=== PATIENT | male | born 1955 | race Caucasian/White ===

== ENCOUNTER → 2018-10-06 | Outpatient (CLI) | payer BC ==
[~2018-10-06] MED LIST: IOHEXOL 180 MG/ML 10 ML VIAL. ONE; MONT10TA9 PO; methylPREDNISolone ACETATE 40 MG/ML VIAL. ONE; methylPREDNISolone ACETATE 80 MG/ML VIAL. ONE
--- NOTE | 2018-10-07 02:27 | PAIN ---
DATE OF SERVICE: 10/06/2018 INITIAL CONSULTATION FOR PAIN CLINIC CHIEF COMPLAINT: Low back and right lower extremity pain. HISTORY OF PRESENT ILLNESS: This is a 63-year-old male who presents with a history of pain for about 2 months, increasing with activity, with pain in the low back and the right lower extremity, mostly in the lateral anterior thigh on the right side to the level of the knee and the medial calf and medial knee as well as the right side. The patient reports no specific injury or accident that he is aware of, it is just getting worse over time. The patient reports it is a sharp pain that is shooting with some numbness and radiating pain in the right leg, getting worse at night, and worse with sitting for prolonged periods or driving. 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 The patient reports it awakens him from sleep about 3-4 times a night, does not affect his bowel or bladder control, but does affect his ability to walk significantly, although he is not using any assistive devices. The patient had some chiropractic treatment, which was not significantly helpful. He is doing some stretching and strengthening exercises on his own. The patient did have an MRI scan of the lumbar spine dated 09/23/2018, which showed a generalized disk bulge at L3-L4 with superimposed right foraminal disk herniation compressing the exiting right L3 nerve root contributing to severe right neural foraminal stenosis; L4-L5 shows a generalized disk bulge with mild left neural foraminal stenosis, asymmetric to the left, L2-L3 shows a moderate central stenosis and bilateral neural foraminal stenosis due to generalized disk bulges. The patient reports his disability rate from 0-10, 10 being the worst, is a 5 with family home responsibilities, social activity, 7 with recreation and occupation and self-care, 8 with sexual behavior, and 6 with life support activities. The patient reports no significant loss of motor function, but significant fatigability in the right lower extremity with any walking more than about 10-15 minutes or sitting for longer than an hour, especially when he is working and driving. PAST MEDICAL HISTORY: Significant for hearing loss, asthma. PAST SURGICAL HISTORY: Previous surgery includes left shoulder surgery in 1970s. CURRENT MEDICATIONS: Complete and well documented on the patient's chart. 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 FAMILY HISTORY: Significant for no major medical problems or conditions that he is aware of. SOCIAL HISTORY: The patient does not drink alcohol; does not smoke and does not use any illegal, illicit, or recreational drugs. 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 REVIEW OF SYSTEMS: The patient's review of systems is positive for those items mentioned in the history of present illness. All systems reviewed and otherwise negative. It is complete, full, and well documented in the patient's chart. PHYSICAL EXAMINATION: VITAL SIGNS: The patient's blood pressure 125/66, pulse 69, respirations 18, and temperature is 97.9 degrees Fahrenheit. Height is 5 feet 10 inches and weight is 228 pounds. GENERAL: The patient is awake, alert, oriented, appropriate, and very pleasant demeanor. HEENT: Head shows normocephalic and atraumatic. Extraocular movements are intact and symmetrical. Oral cavity: Mucous membranes moist and pink. Dentition is intact. NECK: Shows anterior throat supple without palpable lymphadenopathy noted. Swallow reflex is symmetrical. CHEST: Normal on inspection. Breath sounds are clear to auscultation bilaterally. HEART: Shows S1 and S2 clear. No murmurs auscultated. ABDOMEN: Obese, but soft, nontender, and nondistended. No palpable organomegaly is noted. There is no rebound or guarding demonstrated. BACK: Shows spine grossly in the midline. Normal-appearing thoracic kyphosis and some slight flattening of the lumbar lordotic curvature. Lumbar paraspinous muscles show symmetrical on inspection. On palpation, he has some moderate tenderness diffusely, but without significant atrophy, hypertrophy, without asymmetry, and without trigger points. The patient shows no tenderness over the spinous processes, sacrum or sacroiliac regions. EXTREMITIES: The patient's lower extremities show deep tendon reflexes at 1+ in the patellar and tendo-calcaneus tendons. Motor exam is strong with dorsiflexion and extension, rated at a 4/5 on the right, and 5/5 on the left, quadriceps and hamstring flexion likewise very significantly deficit about 3-5 on a scale of 5 on the right, and 5 on the left. Peripheral pulses are 1+ posterior tibia. No peripheral edema is noted. Lower extremities are warm and dry to touch, equal in color and appearance. Straight leg raise is noted to be positive on the right about 40 degrees, left is negative. Gaenslen's and Elpidio's maneuvers are negative bilaterally as well. The patient is able to stand, stand on his toes without difficulty or loss of balance, walking with a slight shuffling gait, does appear to favor the right lower extremity to a mild extent, again not using any assistive devices with him today. SKIN: The patient's skin shows warm and dry, good turgor. No edema. No sores, rashes or bruising throughout. IMPRESSION: 1. This is a 63-year-old male with a several-month history of increasing pain in the low back and right lower extremity in a radicular fashion. 2. The MRI scan of lumbar spine as noted. 3. History of asthma. PLAN: Options were discussed with the patient, including conservative medical management, physical therapy, interventional techniques and they would like to pursue interventional techniques. We discussed a lumbar epidural steroid injection using description as well as anatomical models to describe the procedure. Risks were then discussed including, but not limited to bleeding, infection, possibility of epidural hematoma, subsequent neurological compromise, dural puncture, headaches, spinal cord and/or nerve damage, side effects of steroid medication, and poor results regarding pain control. The patient understands and wishes to proceed. The patient will return to clinic in approximately 2 weeks for followup, was counseled as to return appointment, activity level, and side effects to be aware of. DIAGNOSES: Lumbar radiculopathy with lumbar degenerative disk disease and lumbar herniated disk. PROCEDURE: Lumbar epidural steroid injection, translaminar approach at L3-L4 level using C-arm fluoroscopic guidance under sterile prep and drape using local anesthetic. MEDICATION INJECTED: A total of 120 mg of Depo-Medrol plus 10 mL of preservative-free normal saline and 2 mL of Isovue for contrast. CONDITION AT DISCHARGE: Stable. The patient tolerated the procedure well and had no complications. PIETER NIEVES MD DR: MARIELENA/og JOB#: [id number] / [id number]
== END | disposition home or self-care (01) ==
LOC: PNCL 08:24
PROVIDERS: ATTEND Anesthesiology
DX: M51.16 Intervertebral disc disorders with radiculopathy, lumbar region (principal); J45.909 Unspecified asthma, uncomplicated; H91.90 Unspecified hearing loss, unspecified ear; Z98.890 Other specified postprocedural states; Z79.899 Other long term (current) drug therapy; Z88.8 Allergy status to other drugs, medicaments and biological substances
CPT/HCPCS: 62323; J1030; J1040; Q9965

== ENCOUNTER → 2018-10-20 | Outpatient (CLI) | payer BC ==
--- NOTE | 2018-10-21 04:59 | PAIN ---
DATE OF SERVICE: 10/20/2018 PROGRESS NOTE FOR PAIN CLINIC DIAGNOSES: Lumbar radiculopathy with lumbar degenerative disk disease and lumbar herniated disk. HISTORY OF PRESENT ILLNESS: The patient is a 63-year-old male who returns for followup status post lumbar epidural steroid injection x 1. The patient reports his back is doing much better, about 50%. His leg is still significantly painful and anterior thigh and anterior lower leg medially. The patient reports it is an 8 on a scale of 10 at its worst over the past week, 6 on average, 3 at its least and is a 6 today. The patient reports it is aching in the low back with unbearable in the knee at night on the right side. The patient reports it is traveling into the anterior thigh, medial thigh, medial knee and medial lower leg with walking, standing, change in positions, worse with working bending, stooping, changing, rotation of the lumbar spine, with bending and lifting activities. The patient reports he has been increasing his distance walking, increasing his activity overall because his back is doing better, but the pain in the leg is still significant. The patient reports it awakens him from sleep at night about once or twice each night. No new motor or sensory deficits, no new bowel or bladder incontinence. PHYSICAL EXAMINATION: VITAL SIGNS: The patient's blood pressure is 115/56, pulse 70, respirations 18, temperature is 97.9 degrees Fahrenheit. Height is 5 feet 10 inches, weight is 223 pounds. GENERAL: The patient is awake, alert, oriented, appropriate, very pleasant demeanor. HEENT: Head is normocephalic, atraumatic. Extraocular movements intact and symmetrical. Oral cavity: Mucous membranes are moist and pink. Dentition is intact. NECK: Shows anterior throat supple without palpable lymphadenopathy noted. Swallow reflex symmetrical. CHEST: Shows normal with inspection. Breath sounds clear to auscultation bilaterally. HEART: Shows S1, S2 clear. No murmurs auscultated. ABDOMEN: Soft, nontender, nondistended. No palpable organomegaly is noted. No rebound or guarding demonstrated. BACK: Shows spine grossly in the midline. Normal appearing thoracic kyphosis and lumbar lordotic curvature. Lumbar paraspinous muscle shows symmetrical on inspection and palpation shows some moderate tenderness diffusely bilaterally, but only diffusely in the low lumbar distribution only without radiation. The patient has good rotational motion of lumbar spine, both laterally as well as extension and flexion without difficulty. EXTREMITIES: The patient's lower extremities show deep tendon reflexes 1+ in the patellar and tendo calcaneus tendons are equal. Motor exam is approximately 4 on a scale of 5 on the right and 5/5 on the left with dorsiflexion and extension. Peripheral pulses are 1+ posterior tibial. No peripheral edema present bilaterally. Options were discussed with the patient. The patient's old chart was reviewed as his current medication regimen updated. Current review of systems updated today as well. We will proceed with a second in this series of lumbar epidural steroid injection today with fluoroscopic guidance. Risks were again discussed including, but not limited to, bleeding, infection, possibility of epidural hematoma, subsequent neurological compromise, dural puncture, headaches, spinal cord and/or nerve damage, side effects of steroid medication and poor results regarding pain control. The patient understands and wished to proceed. The patient will return to the clinic in approximately 2 weeks for followup, was counseled as to return appointment, activity level and side effects to be aware of. DIAGNOSES: Lumbar radiculopathy with lumbar degenerative disk disease and lumbar herniated disk. PROCEDURE: Lumbar epidural steroid injection, translaminar approach at L3-L4 level using C-arm fluoroscopic guidance under sterile prep and drape using local anesthetic. MEDICATION INJECTED: A total of 120 mg Depo-Medrol plus 10 mL of preservative-free normal saline and 2 mL of contrast. CONDITION ON DISCHARGE: Stable. The patient tolerated the procedure well, had no complications. PIETER NIEVES MD DR: MARIELENA/og JOB#: [id number] / [id number]
== END ==
LOC: PNCL 13:35
PROVIDERS: ATTEND Anesthesiology
DX: M51.16 Intervertebral disc disorders with radiculopathy, lumbar region (principal)
CPT/HCPCS: 62323; J1030; J1040; Q9965

== ENCOUNTER 2019-06-07 17:39 | Emergency (ER) | payer BC ==
[~2019-06-07] VITALS: Ht 175.3 cm; Wt 99.5 kg
[~2019-06-07 17:39] MED LIST changes: -IOHEXOL 180 MG/ML 10 ML VIAL. ONE; +MONT10TA49 PO; -MONT10TA9 PO; -methylPREDNISolone ACETATE 40 MG/ML VIAL. ONE; -methylPREDNISolone ACETATE 80 MG/ML VIAL. ONE
[2019-06-07] MEDS ORDERED: IV NORMAL SALINE 1000ML BAG 1,000 ML IV STA (18:19)
--- NOTE | 2019-06-07 18:37 | PHYS DOC ---
Past Medical History Past Medical History: High Cholesterol Past Surgical History: Other Additional Past Surgical Histo: SHOULDER Alcohol Use: None Adult General Chief Complaint Chief Complaint: SYNCOPE HPI HPI Patient is a 64 year old male who presents with syncope that occurred last night. The patient states that last night around midnight he got up to the bathroom and passed out and hit the right side of his head against something the bathroom. He got up and passed out again. His was a witness to this. He states his happened one time last summer and when he had not eaten and his blood sugar got low. The patient states he was running a fever yesterday and had a little bit of abdominal cramping. Denies any actual abdominal pain however. The patient denies any symptoms today which is primary care doctor at around 3:30 PM the primary care doctor sent him to the ER. Patient denies drinking alcohol yesterday but did state he was drinking quite a bit of coffee he states he drink a whole pot. Review of Systems Review of Systems Constitutional: Reports fever or chills [] Eyes: Denies change in visual acuity, redness, or eye pain [] HENT: Denies nasal congestion or sore throat [] Respiratory: Denies cough or shortness of breath [] Cardiovascular: No additional information not addressed in HPI [] GI: Denies abdominal pain, nausea, vomiting, bloody stools or diarrhea [] : Denies dysuria or hematuria [] Musculoskeletal: Denies back pain or joint pain [] Integument: Denies rash or skin lesions [] Neurologic: Denies headache, focal weakness or sensory changes [] Endocrine: Denies polyuria or polydipsia [] Complete systems were reviewed and found to be within normal limits, except as documented in this note. Current Medications Current Medications Current Medications Medications (Trade) Dose Ordered Sig/Tomas Start Time Stop Time Status Last Admin Dose Admin Sodium Chloride 1,000 ml @ 1,000 mls/hr 1X STAT 06/07/19 18:19 06/07/19 19:18 DC 06/07/19 18:19 1,000 MLS/HR Allergies Allergies Allergies Coded Allergies Type Severity Reaction Last Updated Verified Inhaled Anesthetics (Halogen Based) Allergy Severe HX OF MALIGNANT HYPERTHERMIA 10/06/18 Yes succinylcholine Allergy Severe HX OF MALIGNANT HYPERTHERMIA 10/06/18 Yes Physical Exam Physical Exam Constitutional: Well developed, well nourished, no acute distress, non-toxic a ppearance. [] HENT: Normocephalic, bruising to R eye, bilateral external ears normal, oropharynx moist, no oral exudates, nose normal. [] Eyes: PERRLA, EOMI, conjunctiva normal, no discharge. [] Neck: Normal range of motion, no tenderness, supple, no stridor. [] Cardiovascular:Heart rate regular rhythm, no murmur [] Lungs & Thorax: Bilateral breath sounds clear to auscultation [] Abdomen: Bowel sounds normal, soft, no tenderness, no masses, no pulsatile masses. [] Skin: Warm, dry, no erythema, no rash. [] Back: No tenderness, no CVA tenderness. [] Extremities: No tenderness, no cyanosis, no clubbing, ROM intact, no edema. [] Neurologic: Alert and oriented X 3, normal motor function, normal sensory function, no focal deficits noted. [] Psychologic: Affect normal, judgement normal, mood normal. [] Current Patient Data Vital Signs Vital Signs Date Time Temp Pulse Resp B/P (MAP) Pulse Ox O2 Delivery O2 Flow Rate FiO2 06/07/19 18:10 98.0 76 16 138/77 (97) 96 Room Air 98.0 Lab Values Laboratory Tests Test 06/07/19 18:35 06/07/19 19:08 White Blood Count 8.9 x10^3/uL (4.0-11.0) Red Blood Count 4.64 x10^6/uL (4.30-5.70) Hemoglobin 13.8 g/dL (13.0-17.5) Hematocrit 41.0 % (39.0-53.0) Mean Corpuscular Volume 88 fL (79-100) Mean Corpuscular Hemoglobin 30 pg (25-35) Mean Corpuscular Hemoglobin Concent 34 g/dL (31-37) Red Cell Distribution Width 13.6 % (11.5-14.5) Platelet Count 240 x10^3/uL (140-400) Neutrophils (%) (Auto) 63 % (31-73) Lymphocytes (%) (Auto) 24 % (24-48) Monocytes (%) (Auto) 11 % (0-9) H Eosinophils (%) (Auto) 2 % (0-3) Basophils (%) (Auto) 1 % (0-3) Neutrophils # (Auto) 5.6 x10^3/uL (1.8-7.7) Lymphocytes # (Auto) 2.1 x10^3/uL (1.0-4.8) Monocytes # (Auto) 1.0 x10^3/uL (0.0-1.1) Eosinophils # (Auto) 0.1 x10^3/uL (0.0-0.7) Basophils # (Auto) 0.1 x10^3/uL (0.0-0.2) D-Dimer (Coco) 0.33 ug/mlFEU (0.00-0.50) Sodium Level 142 mmol/L (136-145) Potassium Level 3.6 mmol/L (3.5-5.1) Chloride Level 104 mmol/L (98-107) Carbon Dioxide Level 31 mmol/L (21-32) Anion Gap 7 (6-14) Blood Urea Nitrogen 15 mg/dL (8-26) Creatinine 1.0 mg/dL (0.7-1.3) Estimated GFR (Cockcroft-Gault) 75.5 BUN/Creatinine Ratio 15 (6-20) Glucose Level 119 mg/dL (70-99) H Calcium Level 8.6 mg/dL (8.5-10.1) Magnesium Level 2.2 mg/dL (1.8-2.4) Total Bilirubin 0.5 mg/dL (0.2-1.0) Aspartate Amino Transferase (AST) 19 U/L (15-37) Alanine Aminotransferase (ALT) 25 U/L (16-63) Alkaline Phosphatase 71 U/L (46-116) Troponin I Quantitative < 0.017 ng/mL (0.000-0.055) Total Protein 7.1 g/dL (6.4-8.2) Albumin 3.3 g/dL (3.4-5.0) L Albumin/Globulin Ratio 0.9 (1.0-1.7) L Influenza Type A Antigen Negative (NEGATIVE) Influenza Type B Antigen Negative (NEGATIVE) Urine Collection Type Unknown Urine Color Yellow Urine Clarity Clear Urine pH 5.5 Urine Specific [place] 1.025 Urine Protein Negative mg/dL (NEG-TRACE) Urine Glucose (UA) Negative mg/dL (NEG) Urine Ketones (Stick) Negative mg/dL (NEG) Urine Blood Negative (NEG) Urine Nitrite Negative (NEG) Urine Bilirubin Negative (NEG) Urine Urobilinogen Dipstick 0.2 mg/dL (0.2 mg/dL) Urine Leukocyte Esterase Negative (NEG) Urine RBC Occ /HPF (0-2) Urine WBC Occ /HPF (0-4) Urine Bacteria 0 /HPF (0-FEW) Urine Mucus Slight /LPF Laboratory Tests 06/07/19 18:35 Laboratory Tests 06/07/19 18:35 EKG EKG EKG interpreted by Dr. Tia Calero with rate of 66. Radiology/Procedures Radiology/Procedures [ [facility] [address] [place] [address] IMAGING REPORT Signed PATIENT: BENJI COOLEY ACCOUNT: [id number] : 1955 LOCATION: ER AGE: 64 SEX: M EXAM STATUS: REG ER ORD. PHYSICIAN: CHEVY SNIDER APRN REASON: syncope x1 day ago PROCEDURE: CHEST PA & LATERAL EXAM: PA and Lateral Views of the Chest DATE: 06/07/2019 6:19 PM INDICATION: Syncope-1 day COMPARISON: No Prior FINDINGS: The heart is not enlarged. Mediastinal and hilar contours are normal. No focal parenchymal airspace opacity. No pleural effusion or pneumothorax. Lower thoracic vertebral body, likely T11, likely age-indeterminate compression fracture. IMPRESSION: 1. No radiographic evidence for acute cardiopulmonary process. 2. Age indeterminate T11 compression fracture. Electronically signed by: Haroldo Turner MD (06/07/2019 7:12 PM) [facility] [place] and SIGNED BY: HAROLDO TURNER MD DATE: 06/07/191911 ][facility] [address] [place], [place] [id number] IMAGING REPORT Signed PATIENT: BENJI COOLEY ACCOUNT: [id number] : 1955 LOCATION: ER AGE: 64 SEX: M EXAM STATUS: REG ER ORD. PHYSICIAN: CHEVY SNIDER APRN REASON: fall PROCEDURE: CT HEAD AND MAXILLOFACIAL WO Exam: CT head and maxillofacial without contrast INDICATION: Fall TECHNIQUE: Sequential axial images through the head and face were obtained without the administration of IV contrast. Comparisons: None FINDINGS: Head: No focal parenchymal lesion or hemorrhage is identified. There is no midline shift or sulcal effacement. No acute vascular territory infarction is identified. Rainey-white distinction is preserved. The ventricular system is within normal limits without compression hydrocephalus. The basal cisterns are well maintained. Face: Globes and intraorbital contents are normal. Mucosal thickening of the right maxillary sinus. No acute fractures. IMPRESSION: 1. No acute intracranial abnormality. 2. No acute traumatic injury identified at the face. Sinus disease described above. Exposure: One or more of the following in the visualized dose reduction techniques were utilized for this examination: 1. Automated exposure control 2. Adjustment of the MA and/or KV according to patient size Use of iterative of reconstructive technique Electronically signed by: Nicolas Muniz MD (06/07/2019 7:03 PM) [facility] Course & Med Decision Making Course & Med Decision Making Pertinent Labs and Imaging studies reviewed. (See chart for details) Will get labs, UA, CT, EKG, and Chest x-ray. Will also give supportive care. Workup is unremarkable. Will d/c home. Dragon Disclaimer Dragon Disclaimer This electronic medical record was generated, in whole or in part, using a voice recognition dictation system. Departure Departure Impression: Primary Impression: Syncope Disposition: 01 HOME, SELF-CARE Condition: STABLE Referrals: CAROLYN DOLL MD (PCP) Patient Instructions: Syncope Additional Instructions: Thank you for visiting [facility]. We appreciate you trusting us with your care. If any additional problems come up don't hesitate to return to visit us. Please follow up with your primary care provider so they can plan additional care if needed and know about the problem that you had. If symptoms worsen come back to the Emergency Department. Any concerning symptoms that start such as chest pain, shortness of air, weakness or numbness on one side of the body, running high fevers or any other concerning symptoms return to the ER. Problem Qualifiers Primary Impression: Syncope Syncope type: unspecified Qualified Codes: R55 - Syncope and collapse CHEVY SNIDER APRN Jun 07, 2019 18:37
[2019-06-07 18:45] LABS: BASO # 0.1 x10^3/uL (0.0-0.2); BASO % 1 % (0-3); EOS # 0.1 x10^3/uL (0.0-0.7); EOS % 2 % (0-3); HEMOGLOBIN 13.8 g/dL (13.0-17.5); LYMPH # 2.1 x10^3/uL (1.0-4.8); LYMPH % 24 % (24-48); MEAN CORPUSCULAR HEMOGLOBIN 30 pg (25-35); MEAN CORPUSCULAR HGB CONC 34 g/dL (31-37); MEAN CORPUSCULAR VOLUME 88 fL (79-100); MONO % 11 % (0-9); NEUT # 5.6 x10^3/uL (1.8-7.7); NEUT % 63 % (31-73); PLATELET COUNT 240 x10^3/uL (140-400); RED BLOOD COUNT 4.64 x10^6/uL (4.30-5.70); RED CELL DISTRIBUTION WIDTH 13.6 % (11.5-14.5); WHITE BLOOD COUNT 8.9 x10^3/uL (4.0-11.0)
[2019-06-07 18:55] LABS: CALCIUM 8.6 mg/dL (8.5-10.1); GFR 75.5; POTASSIUM 3.6 mmol/L (3.5-5.1)
[2019-06-07 19:00] VITALS: BP 139/83
[2019-06-07 19:00] LABS: ALBUMIN 3.3 g/dL (3.4-5.0); ALBUMIN/GLOBULIN RATIO 0.9 (1.0-1.7); MAGNESIUM 2.2 mg/dL (1.8-2.4); TOTAL BILIRUBIN 0.5 mg/dL (0.2-1.0); TOTAL PROTEIN 7.1 g/dL (6.4-8.2)
[2019-06-07 19:03] LABS: INFLUENZA A PATIENT NEGATIVE (NEGATIVE); INFLUENZA B PATIENT NEGATIVE (NEGATIVE)
--- NOTE | 2019-06-07 19:06 | RAD ---
Exam: CT head and maxillofacial without contrast INDICATION: Fall TECHNIQUE: Sequential axial images through the head and face were obtained without the administration of IV contrast. Comparisons: None FINDINGS: Head: No focal parenchymal lesion or hemorrhage is identified. There is no midline shift or sulcal effacement. No acute vascular territory infarction is identified. Rainey-white distinction is preserved. The ventricular system is within normal limits without compression hydrocephalus. The basal cisterns are well maintained. Face: Globes and intraorbital contents are normal. Mucosal thickening of the right maxillary sinus. No acute fractures. IMPRESSION: 1. No acute intracranial abnormality. 2. No acute traumatic injury identified at the face. Sinus disease described above. Exposure: One or more of the following in the visualized dose reduction techniques were utilized for this examination: 1. Automated exposure control 2. Adjustment of the MA and/or KV according to patient size Use of iterative of reconstructive technique Electronically signed by: Nicolas Muniz MD (06/07/2019 7:03 PM) [facility]
[2019-06-07 19:13] LABS: BILIRUBIN,URINE NEGATIVE (NEG); COLOR,URINE YELLOW; NITRITE,URINE NEGATIVE (NEG); PH,URINE 5.5; PROTEIN,URINE NEGATIVE (NEG-TRACE); UROBILINOGEN,URINE 0.2 mg/dL (0.2 mg/dL)
[2019-06-07 19:15] LABS: CLARITY,URINE CLEAR
--- NOTE | 2019-06-07 19:15 | RAD ---
EXAM: PA and Lateral Views of the Chest DATE: 06/07/2019 6:19 PM INDICATION: Syncope-1 day COMPARISON: No Prior FINDINGS: The heart is not enlarged. Mediastinal and hilar contours are normal. No focal parenchymal airspace opacity. No pleural effusion or pneumothorax. Lower thoracic vertebral body, likely T11, likely age-indeterminate compression fracture. IMPRESSION: 1. No radiographic evidence for acute cardiopulmonary process. 2. Age indeterminate T11 compression fracture. Electronically signed by: Haroldo Flood MD (06/07/2019 7:12 PM) [facility] [place]
[2019-06-07 19:17] LABS: BACTERIA,URINE 0 /HPF (0-FEW); RBC,URINE OCC /HPF (0-2); WBC,URINE OCC /HPF (0-4)
--- NOTE | 2019-06-08 06:50 | EKG ---
[facility] [address] [place] [address] Test Date: 2019-06-07 Test Time: 18:35:07 Pat Name: BENJI COOLEY Department: Room: Gender: M Deck Molder: : 1955 Requested By: CHEVY SNIDER Order Number: [id number] Reading MD: Measurements Intervals [place] Rate: 62 P: 31 GA: 208 QRS: -8 QRSD: 90 T: -16 QT: 384 QTc: 392 Interpretive Statements SINUS RHYTHM LEFTWARD AXIS R-S TRANSITION ZONE IN V LEADS DISPLACED TO THE LEFT QRS(T) CONTOUR ABNORMALITY CONSIDER ANTEROSEPTAL MYOCARDIAL DAMAGE POSSIBLY ABNORMAL ECG RI6.01 No previous ECG available for comparison
== END 2019-06-07 19:47 | disposition home or self-care (01) ==
LOC: ER 17:39
DX: R55 Syncope and collapse (principal); R50.9 Fever, unspecified; R10.9 Unspecified abdominal pain; E78.00 Pure hypercholesterolemia, unspecified; Z98.890 Other specified postprocedural states; Z88.4 Allergy status to anesthetic agent
CPT/HCPCS: 36415; 70450; 70486; 71046; 80053; 81001; 83735; 84484; 85025; 85379; 87804; 93005; 96360; 99285; J7030

== ENCOUNTER 2020-07-05 06:22 | Inpatient (IN) | payer BC ==
[~2020-07-05] VITALS: Ht 175.3 cm; Wt 73.5 kg
[2020-07-05 07:15] VITALS: BP 131/68
--- NOTE | 2020-07-05 08:11 | PDOC ---
DR. DOLL PROGRESS NOTE Date of Service DOS: DATE: 07/05/20 TIME: 08:09 Chief Complaint Chief Complaint fever, aches, abdominal pain for 4-5 days. History of Present Illness History of Present Illness admitted with elevated liver function tests, fever, RUQ tenderness for iv antibiotics, US, surgical eval. If not felt to be gallbladder will need GI eval. Comment Review of Relevant I have reviewed the following items sincere (where applicable) has been applied. CAROLYN DOLL MD Jul 05, 2020 08:11
[2020-07-05] MEDS ORDERED: ONDANSETRON PF 4 MG/2 ML VIAL. IVP PRN (08:15)
[2020-07-05] MEDS ORDERED: MORPHINE SULFATE 4 MG/ML VIAL. IV PRN (08:15)
[2020-07-05] MEDS ORDERED: PIP/TAZO PER PHARMACY MC PRN (08:15)
[2020-07-05] MEDS ORDERED: MORPHINE SULFATE 2 MG/ML VIAL. IV PRN (08:15)
[2020-07-05 09:25] LABS: BASO # 0.1 x10^3/uL (0.0-0.2); BASO % 1 % (0-3); EOS # 0.4 x10^3/uL (0.0-0.7); EOS % 4 % (0-3); HEMATOCRIT 39.9 % (39.0-53.0); HEMOGLOBIN 13.5 g/dL (13.0-17.5); LYMPH # 1.2 x10^3/uL (1.0-4.8); LYMPH % 14 % (24-48); MEAN CORPUSCULAR HEMOGLOBIN 29 pg (25-35); MEAN CORPUSCULAR HGB CONC 34 g/dL (31-37); MEAN CORPUSCULAR VOLUME 87 fL (79-100); MONO # 1.3 x10^3/uL (0.0-1.1); MONO % 15 % (0-9); NEUT # 5.5 x10^3/uL (1.8-7.7); NEUT % 66 % (31-73); PLATELET COUNT 251 x10^3/uL (140-400); RED BLOOD COUNT 4.59 x10^6/uL (4.30-5.70); RED CELL DISTRIBUTION WIDTH 13.3 % (11.5-14.5); WHITE BLOOD COUNT 8.4 x10^3/uL (4.0-11.0)
[2020-07-05 09:33] LABS: CALCIUM 8.6 mg/dL (8.5-10.1); GFR 75.2; POTASSIUM 3.9 mmol/L (3.5-5.1)
--- NOTE | 2020-07-05 09:35 | RAD ---
EXAM: Abdomen sonogram. HISTORY: Elevated liver function laboratory values. TECHNIQUE: Sonographic imaging of the abdomen was performed. COMPARISON: None. FINDINGS: The liver is enlarged. There is hepatic steatosis. No focal hepatic lesion is seen. The gal lbladder is unremarkable. The common bile duct is normal in caliber. The kidneys normal in size. Ther e is no hydronephrosis. There is a 2.7 cm simple cyst within the right kidney. The spleen is normal i n size. The aorta is normal in caliber. The inferior vena cava is patent. The pancreas is obscured du e to bowel gas. IMPRESSION: 1. Hepatomegaly and hepatic steatosis. 2. Simple right renal cyst. Follow-up is not routinely recommended for simple cysts. Electronically signed by: Jaja Brennan MD (07/05/2020 9:32 AM) [id number]
[2020-07-05 09:39] LABS: ALBUMIN/GLOBULIN RATIO 0.7 (1.0-1.7); TOTAL BILIRUBIN 0.6 mg/dL (0.2-1.0); TOTAL PROTEIN 7.1 g/dL (6.4-8.2)
[2020-07-05] MEDS ORDERED: IOHEXOL 300 MG/ML 100ML VIAL. IV ONE (10:00)
[2020-07-05] MEDS ORDERED: IOHEXOL 240 MG/ML 50ML VIAL. PO ONE (10:00)
[2020-07-05] MEDS ORDERED: CONTRAST GIVEN. MC PRN (10:15)
[2020-07-05] MEDS: IV 1/2 NORMAL SALINE 1,000 ML IV SCH (10:25)
[2020-07-05] MEDS: PIPERACILLIN/TAZOBACTAM 3.375 GM in IV NORMAL SALINE 50ML 50 ML IV SCH ×4 (10:25→23:54)
--- NOTE | 2020-07-05 10:32 | NUR ---
SW following for discharge planning. Spoke with RN and reviewed chart. SW met with pt today. Pt RAPID covid result is negative. Consult for possible surgery. Pt from home with his and is up ad-erika. Pt on room air, IV KATHY EdwardsO. Pt stated to this SW that he would like to speak with somebody about making payments on a previous hospital bill. ARLEEN LVM for Talia with patient accounts and asked her to follow up with this pt per pt request. SW following.
[2020-07-05 11:00] VITALS: BP_SYST 136; BP_SYST 143; BP_DIAS 66; BP_DIAS 74
--- NOTE | 2020-07-05 13:02 | RAD ---
EXAM: CT Abdomen and Pelvis with IV contrast INDICATION: Reason: abd pain / Spl. Instructions: omni 300 75ml omni 240 50ml / History: TECHNIQUE: Multi-detector row CT images were acquired from the lung bases through the abdomen and pel vis with the use of IV contrast. Sagittal and coronal images were acquired from the transaxial data. All CT scans performed at this facility utilize dose optimization techniques as appropriate to the ex am, including the following: Automated exposure control and adjustment of the mA and/or KV according to patient size (this includes techniques or standardized protocols for targeted exams where dose is indication/reason for exam). IV CONTRAST: Administered ORAL CONTRAST: Administered COMPARISON: Abdomen and pelvis CT without IV contrast of 02/04/2013 FINDINGS: LOWER CHEST: Unremarkable LIVER: Unremarkable BILIARY SYSTEM: Gallbladder is unremarkable. Bile ducts are not dilated. PANCREAS: Unremarkable SPLEEN: Unremarkable ADRENALS: Unremarkable KIDNEYS & URETERS: Interval passage of the previously obstructing distal right ureteral stone and re solution of asymmetric right perinephric soft tissue stranding previously evident. A 2.6 cm low-densi ty cyst in the right kidney has increased in size from the previous examination but requires no addit ional imaging follow-up. BLADDER: Unremarkable REPRODUCTIVE ORGANS: Prostate measures 5.3 cm in transverse diameter. GASTROINTESTINAL: Scattered colonic diverticuli. No findings of acute diverticulitis. No findings of bowel obstruction, perforation or acute inflammation. The appendix is normal. MESENTERY/PERITONEUM/RETROPERITONEUM: Minimal stranding in the mesenteric fat (best illustrated on ax ial image 45 of series 2) is present. VASCULAR: Unremarkable LYMPH NODES: No adenopathy OSSEOUS & SOFT TISSUES: Lumbar spinal degenerative changes. No acute or aggressive appearing bony le sions. IMPRESSION: Minimal soft tissue stranding in the small bowel mesentery is nonspecific but compatible with mesente nash panniculitis in the appropriate clinical context. Correlate for any evidence of acute pancreatiti s biochemically. Otherwise no acute pathology on CT of the abdomen and pelvis. There is colonic diver ticulosis without findings of acute diverticulitis or of bowel obstruction, perforation or acute infl ammation. Electronically signed by: Diamante Ghosh MD (07/05/2020 1:00 PM) [id number]
--- NOTE | 2020-07-05 13:32 | PDOC2 ---
GI CONSULT Date of Service: DATE: 07/05/20 TIME: 13:08 Reason For Consult: abdominal pain, elevated LFTs HPI: HPI: Pleasant 65 y/o male directly admitted. Reports chills and fever (up to 101 at home) since Friday or Friday w/ some RUQ pain and abnormal outpt labs (elevated LFTs). Says outpt rapid COVID test was negative. Concern for GB problem, advised to come get checked. He is concerned with many symptoms - has chronic neck/back pain w/ increasing BUE weakness recently. Also reports frequent night sweats for months. RUQ discomfort has also been present for awhile - noticed w/ certain movements (getting in and out of truck) and possibly worse after eating. He thinks most symptoms were first noticed in 05/2019 when he was evaluated for syncope in the [facility] ER. Says he was told he was dehydrated and drank too much coffee. Rare indigestion when goes to bed soon after eating. No dysphagia, n/v, diarrhea, hematochezia, or melena. Usually "forces" himself to have a stool every morning so he doesn't have to worry about it later. Denies hard stools. Probably has gained some weight. No previous EGD. Colonoscopy w/ [facility] ~4 years ago w/ hemorrhoids, told to come back in 10 years. No GB, liver, pancreas, or PUD history. No h/o blood transfusions, tattoos, or IVDU. Someone mentioned possibility of hepatitis which is concerning to him. Names diclofenac for chronic back pain. Mentions supposed to see pain man agement for injections w/ consideration for surgery later. 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 Also recently downsized and moved into a smaller home - has been a lot of work moving belongings. He says it seems like something is always hurting. PMH: PMH: HLD, DDD, herniated discs, chronic neck/back pain left shoulder surgery FH: Family History: Other (many family members had cholecystectomy) Social History: Smoke: No ALCOHOL: rare (maybe a beer with pizza or tacos sometimes) Drugs: None ROS: GEN: +chills +sweats +fever HEENT: Denies blurred vision, sore throat CV: Denies chest pain RESP: Denies shortness of air, cough GI: Per HPI : Denies hematuria, dysuria ENDO: +weight gain NEURO: Denies confusion, dizziness MSK: +chronic back pain, BUE weakness SKIN: Denies jaundice, pruritus Vitals: Vitals: Vital Signs Date Time Temp Pulse Resp B/P (MAP) Pulse Ox O2 Delivery O2 Flow Rate FiO2 07/05/20 12:08 Room Air 07/05/20 11:00 98.0 68 16 143/74 (97) 96 98.0 Labs: Labs: Laboratory Tests Test 07/05/20 09:00 07/05/20 09:05 SARS-CoV-2 Antigen (Rapid) Negative (NEGATIVE) White Blood Count 8.4 x10^3/uL (4.0-11.0) Red Blood Count 4.59 x10^6/uL (4.30-5.70) Hemoglobin 13.5 g/dL (13.0-17.5) Hematocrit 39.9 % (39.0-53.0) Mean Corpuscular Volume 87 fL (79-100) Mean Corpuscular Hemoglobin 29 pg (25-35) Mean Corpuscular Hemoglobin Concent 34 g/dL (31-37) Red Cell Distribution Width 13.3 % (11.5-14.5) Platelet Count 251 x10^3/uL (140-400) Neutrophils (%) (Auto) 66 % (31-73) Lymphocytes (%) (Auto) 14 % (24-48) Monocytes (%) (Auto) 15 % (0-9) Eosinophils (%) (Auto) 4 % (0-3) Basophils (%) (Auto) 1 % (0-3) Neutrophils # (Auto) 5.5 x10^3/uL (1.8-7.7) Lymphocytes # (Auto) 1.2 x10^3/uL (1.0-4.8) Monocytes # (Auto) 1.3 x10^3/uL (0.0-1.1) Eosinophils # (Auto) 0.4 x10^3/uL (0.0-0.7) Basophils # (Auto) 0.1 x10^3/uL (0.0-0.2) Sodium Level 141 mmol/L (136-145) Potassium Level 3.9 mmol/L (3.5-5.1) Chloride Level 103 mmol/L (98-107) Carbon Dioxide Level 29 mmol/L (21-32) Anion Gap 9 (6-14) Blood Urea Nitrogen 17 mg/dL (8-26) Creatinine 1.0 mg/dL (0.7-1.3) Estimated GFR (Cockcroft-Gault) 75.2 BUN/Creatinine Ratio 17 (6-20) Glucose Level 105 mg/dL (70-99) Calcium Level 8.6 mg/dL (8.5-10.1) Total Bilirubin 0.6 mg/dL (0.2-1.0) Aspartate Amino Transf (AST/SGOT) 75 U/L (15-37) Alanine Aminotransferase (ALT/SGPT) 299 U/L (16-63) Alkaline Phosphatase 165 U/L (46-116) Total Protein 7.1 g/dL (6.4-8.2) Albumin 3.0 g/dL (3.4-5.0) Albumin/Globulin Ratio 0.7 (1.0-1.7) Allergies: Coded Allergies: Inhaled Anesthetics (Halogen Based) (Verified Allergy, Severe, HX OF MALIGNANT HYPERTHERMIA, 10/06/18) succinylcholine (Verified Allergy, Severe, HX OF MALIGNANT HYPERTHERMIA, 10/06/18) Medications: Current Medications Medications (Trade) Dose Ordered Sig/Tomas Route PRN Reason Start Time Stop Time Status Last Admin Dose Admin Sodium Chloride 1,000 ml @ 75 mls/hr [id number] IV 07/05/20 08:15 07/05/20 10:25 Piperacillin Sod/ Tazobactam Sod 3.375 gm/Sodium Chloride 50 ml @ 100 mls/hr Q6HRS IV 07/05/20 09:00 07/05/20 10:25 Iohexol (Omnipaque 240 Mg/ml) 50 ml 1X ONCE PO 07/05/20 10:00 07/05/20 10:04 DC 07/05/20 10:00 Iohexol (Omnipaque 300 Mg/ml) 75 ml 1X ONCE IV 07/05/20 10:00 07/05/20 10:04 DC 07/05/20 11:39 Imaging: Imaging: Abd US 07/05/20 FINDINGS: The liver is enlarged. There is hepatic steatosis. No focal hepatic lesion is seen. The gallbladder is unremarkable. The common bile duct is normal in caliber. The kidneys normal in size. There is no hydronephrosis. There is a 2.7 cm simple cyst within the right kidney. The spleen is normal in size. The aorta is normal in caliber. The inferior vena cava is patent. The pancreas is obscured due to bowel gas. IMPRESSION: 1. Hepatomegaly and hepatic steatosis. 2. Simple right renal cyst. Follow-up is not routinely recommended for simple cysts. CT A/P w/ PO & IV contrast 07/05/20 FINDINGS: LOWER CHEST: Unremarkable LIVER: Unremarkable BILIARY SYSTEM: Gallbladder is unremarkable. Bile ducts are not dilated. PANCREAS: Unremarkable SPLEEN: Unremarkable ADRENALS: Unremarkable KIDNEYS & URETERS: Interval passage of the previously obstructing distal right ureteral stone and resolution of asymmetric right perinephric soft tissue stran ding previously evident. A 2.6 cm low-density cyst in the right kidney has increased in size from the previous examination but requires no additional imaging follow-up. BLADDER: Unremarkable REPRODUCTIVE ORGANS: Prostate measures 5.3 cm in transverse diameter. GASTROINTESTINAL: Scattered colonic diverticuli. No findings of acute diverticulitis. No findings of bowel obstruction, perforation or acute inflammation. The appendix is normal. MESENTERY/PERITONEUM/RETROPERITONEUM: Minimal stranding in the mesenteric fat (best illustrated on axial image 45 of series 2) is present. VASCULAR: Unremarkable LYMPH NODES: No adenopathy OSSEOUS & SOFT TISSUES: Lumbar spinal degenerative changes. No acute or aggressive appearing bony lesions. IMPRESSION: Minimal soft tissue stranding in the small bowel mesentery is nonspecific but compatible with mesenteric panniculitis in the appropriate clinical context. Correlate for any evidence of acute pancreatitis biochemically. Otherwise no acute pathology on CT of the abdomen and pelvis. There is colonic diverticulosis without findings of acute diverticulitis or of bowel obstruction, perforation or acute inflammation. PE: GEN: NAD HEENT: Atraumatic, PERRL LUNGS: CTAB HEART: RRR ABD: quiet BS, soft, round, very mild RUQ discomfort under ribs EXTREMITY: No edema SKIN: No rashes, no jaundice NEURO/PSYCH: A & O 3 A/P: A/P: RUQ discomfort, chills/sweats/fever Elevated LFTs - new Abnormal CT finding - minimal soft tissue stranding in the small bowel mesentery CRC screen - reportedly normal ~4 years ago Diverticulosis Hepatic steatosis/hepatomegaly Rapid COVID negative 07/05 Chronic pain/DDD, BUE weakness, NSAID use -- ?chronic issue - worse over the weekend w/ new finding of elevated LFTs. Normal GB. Will check Hepatitis panel. D/w Dr. Garcia - check HIDA w/ GB EF. JUAN NICHOLSON Jul 05, 2020 13:32
--- NOTE | 2020-07-05 13:33 | HP ---
ADMIT DATE: 07/05/2020 LOCATION: He is going to room 500. CHIEF COMPLAINT AND HISTORY OF PRESENT ILLNESS: This 65-year-old white male is well known to me in followup in the office. The patient was seen earlier in the week with fevers, chills, weakness, dizziness, diffuse myalgias and had right upper quadrant tenderness on exam. Laboratory showed elevated liver function tests. He was not improving and actually was getting more uncomfortable. There was no evidence of any icterus present on exam. He was felt to probably have a gallbladder issue with the alkaline phosphatase being somewhat elevated in addition, although he had a normal white count, was admitted for surgical evaluation and pain control. PAST MEDICAL HISTORY: Remarkable for asthma, hyperlipidemia, kidney stones. PAST SURGICAL HISTORY: Remarkable for prior shoulder surgery. SOCIAL HISTORY: The patient is a nonsmoker, nondrinker, does not use drugs. Works daily. Lives with his . FAMILY HISTORY: Noncontributory. MEDICATIONS: Brought with the patient, listed on the computer and have been addressed. ALLERGIES: He has no known drug allergies. REVIEW OF SYSTEMS: As mentioned above. PHYSICAL EXAMINATION: GENERAL: He is well-developed, well-nourished white male, who is still running fevers above 101 on the night prior to admission. VITAL SIGNS: Stable. He is currently afebrile. HEAD, EYES, EARS, NOSE AND THROAT: Unremarkable, without icterus. NECK: Supple without adenopathy or thyromegaly. CHEST: Clear to auscultation and percussion. HEART: Regular rate and rhythm without S3, S4 or murmur. ABDOMEN: Reveals ongoing right upper quadrant tenderness to exam. ____ positive Escalante sign, however. EXTREMITIES: Without cyanosis, clubbing or edema. NEUROLOGIC: He is intact. IMPRESSION: Febrile syndrome with right upper quadrant pain, elevated liver function tests, getting worse and suspected gallbladder disease. PLAN: Admission. Ultrasound of the abdomen. Surgical consultation with GI to evaluate, if we do not find gallbladder as the etiology. CAROLYN DOLL MD DR: BRITTNEE/og JOB#: [id number] / [id number]
[2020-07-05 15:00] VITALS: BP 119/51
[2020-07-05] MEDS: PANTOPRAZOLE 40 MG TABLET.DR. PO SCH (15:08)
[2020-07-05] MEDS ORDERED: ATOR20TA58 PO (15:15)
[2020-07-05] MEDS ORDERED: DICL75TA PO (15:15)
[2020-07-05] MEDS ORDERED: MODA100T2 PO (15:15)
--- NOTE | 2020-07-05 17:15 | PDOC2 ---
CONSULT Date of Consult Date of Consult DATE: 07/05/20 TIME: 17:11 Reason for Consult Reason for Consult: RUQ abd pain, elevated LFTs. Referring Physician Referring Physician: Dr. Marie Identification/Chief Complaint Chief Complaint RUQ abd pain Source Source: Chart review, Patient History of Present Illness Reason for Visit: 65 yo M reports feeling poorly for about the past year. Notes chronic issues with neck chest and back pain. Was to be seen by pain service for injections. Noted to have elevated LFTs, and was admitted for evaluation. Does feel somewhat better since admission. Weight has been stable. Past Medical History Cardiovascular: HTN Pulmonary: Asthma Renal/: Benign prostatic enlarg., Other (kidney stones) Past Surgical History Past Surgical History: Other (shoulder surgery) Family History Family History: No Significant Social History No ALCOHOL: rare (maybe a beer with pizza or tacos sometimes) Drugs: None Current Medications Current Medications Current Medications Sodium Chloride 1,000 ml @ 75 mls/hr [id number] IV Last administered on 07/05/20at 10:25; Start 07/05/20 at 08:15 Piperacillin Sod/ Tazobactam Sod (Zosyn Per Pharmacy) 1 each PRN DAILY PRN MC SEE COMMENTS; Start 07/05/20 at 08:15 Ondansetron HCl (Zofran) 4 mg PRN Q6HRS PRN IVP NAUSEA/VOMITING; Start 07/05/20 at 08:15 Morphine Sulfate (Morphine Sulfate) 4 mg PRN Q4HRS PRN IV PAIN SEVERE; Start 07/05/20 at 08:15 Morphine Sulfate (Morphine Sulfate) 2 mg PRN Q4HRS PRN IV PAIN MILD TO MOD; Start 07/05/20 at 08:15 Piperacillin Sod/ Tazobactam Sod 3.375 gm/Sodium Chloride 50 ml @ 100 mls/hr Q6HRS IV Last administered on 07/05/20at 15:10; Start 07/05/20 at 09:00 Iohexol (Omnipaque 240 Mg/ml) 50 ml 1X ONCE PO Last administered on 07/05/20at 10:00; Start 07/05/20 at 10:00; Stop 07/05/20 at 10:04; Status DC Iohexol (Omnipaque 300 Mg/ml) 75 ml 1X ONCE IV Last administered on 07/05/20at 11:39; Start 07/05/20 at 10:00; Stop 07/05/20 at 10:04; Status DC Info (CONTRAST GIVEN -- Rx MONITORING) 1 each PRN DAILY PRN MC SEE COMMENTS; Start 07/05/20 at 10:15; Stop 07/07/20 at 10:14 Pantoprazole Sodium (Protonix) 40 mg DAILYAC PO Last administered on 07/05/20at 15:08; Start 07/05/20 at 14:30 Active Scripts Active Reported Modafinil 100 Mg Tablet 100 Mg PO PRN PRN Diclofenac Sodium 75 Mg Tablet.dr 75 Mg PO BID Atorvastatin Calcium 20 Mg Tablet 20 Mg PO HS Montelukast Sodium Tablet (Montelukast Sodium) 10 Mg Tablet 1 Tab PO DAILY Allergies Allergies: Coded Allergies: Inhaled Anesthetics (Halogen Based) (Verified Allergy, Severe, HX OF MALIGNANT HYPERTHERMIA, 10/06/18) succinylcholine (Verified Allergy, Severe, HX OF MALIGNANT HYPERTHERMIA, 10/06/18) ROS Musculoskeletal: Yes Pain In: (diffusely) Physical Exam General: Alert, Oriented X3, Cooperative, No acute distress HEENT: EOMI Lungs: Normal air movement Abdomen: Soft, No tenderness Extremities: No clubbing, No cyanosis Skin: No rashes, No breakdown Neuro: Normal speech, Sensation intact Psych/Mental Status: Mental status NL, Mood NL Vitals VITALS Vital Signs Date Time Temp Pulse Resp B/P (MAP) Pulse Ox O2 Delivery O2 Flow Rate FiO2 07/05/20 15:00 98.3 82 18 119/51 (73) 95 Room Air 98.3 Labs Labs Laboratory Tests Test 07/05/20 09:00 07/05/20 09:05 SARS-CoV-2 Antigen (Rapid) Negative (NEGATIVE) White Blood Count 8.4 x10^3/uL (4.0-11.0) Red Blood Count 4.59 x10^6/uL (4.30-5.70) Hemoglobin 13.5 g/dL (13.0-17.5) Hematocrit 39.9 % (39.0-53.0) Mean Corpuscular Volume 87 fL (79-100) Mean Corpuscular Hemoglobin 29 pg (25-35) Mean Corpuscular Hemoglobin Concent 34 g/dL (31-37) Red Cell Distribution Width 13.3 % (11.5-14.5) Platelet Count 251 x10^3/uL (140-400) Neutrophils (%) (Auto) 66 % (31-73) Lymphocytes (%) (Auto) 14 % (24-48) Monocytes (%) (Auto) 15 % (0-9) Eosinophils (%) (Auto) 4 % (0-3) Basophils (%) (Auto) 1 % (0-3) Neutrophils # (Auto) 5.5 x10^3/uL (1.8-7.7) Lymphocytes # (Auto) 1.2 x10^3/uL (1.0-4.8) Monocytes # (Auto) 1.3 x10^3/uL (0.0-1.1) Eosinophils # (Auto) 0.4 x10^3/uL (0.0-0.7) Basophils # (Auto) 0.1 x10^3/uL (0.0-0.2) Sodium Level 141 mmol/L (136-145) Potassium Level 3.9 mmol/L (3.5-5.1) Chloride Level 103 mmol/L (98-107) Carbon Dioxide Level 29 mmol/L (21-32) Anion Gap 9 (6-14) Blood Urea Nitrogen 17 mg/dL (8-26) Creatinine 1.0 mg/dL (0.7-1.3) Estimated GFR (Cockcroft-Gault) 75.2 BUN/Creatinine Ratio 17 (6-20) Glucose Level 105 mg/dL (70-99) Calcium Level 8.6 mg/dL (8.5-10.1) Total Bilirubin 0.6 mg/dL (0.2-1.0) Aspartate Amino Transf (AST/SGOT) 75 U/L (15-37) Alanine Aminotransferase (ALT/SGPT) 299 U/L (16-63) Alkaline Phosphatase 165 U/L (46-116) Total Protein 7.1 g/dL (6.4-8.2) Albumin 3.0 g/dL (3.4-5.0) Albumin/Globulin Ratio 0.7 (1.0-1.7) Lipase 64 U/L (73-393) Hepatitis A IgM Antibody Nonreactive (Nonreactive) Hepatitis B Surface Antigen Nonreactive (Nonreactive) Hepatitis B Core IgM Antibody Nonreactive (Nonreactive) Hepatitis C IgG Antibody Nonreactive (Nonreactive) Laboratory Tests Test 07/05/20 09:00 07/05/20 09:05 SARS-CoV-2 Antigen (Rapid) Negative (NEGATIVE) White Blood Count 8.4 x10^3/uL (4.0-11.0) Red Blood Count 4.59 x10^6/uL (4.30-5.70) Hemoglobin 13.5 g/dL (13.0-17.5) Hematocrit 39.9 % (39.0-53.0) Mean Corpuscular Volume 87 fL (79-100) Mean Corpuscular Hemoglobin 29 pg (25-35) Mean Corpuscular Hemoglobin Concent 34 g/dL (31-37) Red Cell Distribution Width 13.3 % (11.5-14.5) Platelet Count 251 x10^3/uL (140-400) Neutrophils (%) (Auto) 66 % (31-73) Lymphocytes (%) (Auto) 14 % (24-48) Monocytes (%) (Auto) 15 % (0-9) Eosinophils (%) (Auto) 4 % (0-3) Basophils (%) (Auto) 1 % (0-3) Neutrophils # (Auto) 5.5 x10^3/uL (1.8-7.7) Lymphocytes # (Auto) 1.2 x10^3/uL (1.0-4.8) Monocytes # (Auto) 1.3 x10^3/uL (0.0-1.1) Eosinophils # (Auto) 0.4 x10^3/uL (0.0-0.7) Basophils # (Auto) 0.1 x10^3/uL (0.0-0.2) Sodium Level 141 mmol/L (136-145) Potassium Level 3.9 mmol/L (3.5-5.1) Chloride Level 103 mmol/L (98-107) Carbon Dioxide Level 29 mmol/L (21-32) Anion Gap 9 (6-14) Blood Urea Nitrogen 17 mg/dL (8-26) Creatinine 1.0 mg/dL (0.7-1.3) Estimated GFR (Cockcroft-Gault) 75.2 BUN/Creatinine Ratio 17 (6-20) Glucose Level 105 mg/dL (70-99) Calcium Level 8.6 mg/dL (8.5-10.1) Total Bilirubin 0.6 mg/dL (0.2-1.0) Aspartate Amino Transf (AST/SGOT) 75 U/L (15-37) Alanine Aminotransferase (ALT/SGPT) 299 U/L (16-63) Alkaline Phosphatase 165 U/L (46-116) Total Protein 7.1 g/dL (6.4-8.2) Albumin 3.0 g/dL (3.4-5.0) Albumin/Globulin Ratio 0.7 (1.0-1.7) Lipase 64 U/L (73-393) Hepatitis A IgM Antibody Nonreactive (Nonreactive) Hepatitis B Surface Antigen Nonreactive (Nonreactive) Hepatitis B Core IgM Antibody Nonreactive (Nonreactive) Hepatitis C IgG Antibody Nonreactive (Nonreactive) Images Images Ct with some mesenteric edema Assessment/Plan Assessment/Plan abd pain, unknown etiology agree with w/u per GI no immediate surgical plans currently Thanks for consult! RAHUL LEWIS MD Jul 05, 2020 17:15
[2020-07-05 19:00] VITALS: BP 137/67
[2020-07-05 23:00] VITALS: BP 121/67
[2020-07-06] MEDS: IV 1/2 NORMAL SALINE 1,000 ML IV SCH ×2 (02:13→10:55)
[2020-07-06 03:00] VITALS: BP 114/69
[2020-07-06] MEDS: PIPERACILLIN/TAZOBACTAM 3.375 GM in IV NORMAL SALINE 50ML 50 ML IV SCH ×4 (06:03→23:02)
[2020-07-06 07:00] VITALS: BP 134/75
[2020-07-06] MEDS: PANTOPRAZOLE 40 MG TABLET.DR. PO SCH (07:30)
[2020-07-06 09:26] LABS: ALBUMIN 2.6 g/dL (3.4-5.0); DIRECT BILIRUBIN 0.2 mg/dL (0.0-0.2); TOTAL BILIRUBIN 0.9 mg/dL (0.2-1.0); TOTAL PROTEIN 6.5 g/dL (6.4-8.2)
--- NOTE | 2020-07-06 10:26 | PDOC ---
Date of Service: DATE: 07/06/20 TIME: 10:23 Subjective: Subjective: Has a headache. RUQ discomfort about the same. Didn't sleep well. No chills/sweats. Objective: Vital Signs: Vital Signs Date Time Temp Pulse Resp B/P (MAP) Pulse Ox O2 Delivery O2 Flow Rate FiO2 07/06/20 08:00 Room Air 07/06/20 07:00 97.6 68 16 134/75 (94) 95 97.6 Labs: Laboratory Tests Test 07/06/20 07:40 Total Bilirubin 0.9 mg/dL Direct Bilirubin 0.2 mg/dL Aspartate Amino Transf (AST/SGOT) 48 U/L Alanine Aminotransferase (ALT/SGPT) 214 U/L Alkaline Phosphatase 136 U/L Total Protein 6.5 g/dL Albumin 2.6 g/dL PE: GEN: NAD LUNGS: CTAB HEART: RRR ABD: NABS, S/ND/NT NEURO/PSYCH: A & O 3 A/P: RUQ discomfort Chills/sweats/fever - none here Elevated LFTs - better; viral Hep panel negative; fatty liver COVID negative 07/05 Chronic pain, NSAID use -- HIDA ordered yesterday - awaiting this. Okay to eat per GI when done. Justicifation of Admission Dx: Justifications for Admission: Justification of Admission Dx: Yes JUAN NICHOLSON Jul 06, 2020 10:26
[2020-07-06 11:00] VITALS: BP 144/84
--- NOTE | 2020-07-06 11:30 | PDOC ---
SURGICAL PROGRESS NOTE DATE: 07/06/20 TIME: 11:30 Subjective down for hida scan will FU on results Vital Signs Vital Signs Date Time Temp Pulse Resp B/P (MAP) Pulse Ox O2 Delivery O2 Flow Rate FiO2 07/06/20 11:00 97.4 69 18 144/84 (104) 92 Room Air 97.4 I&O Intake and Output 07/06/20 07:00 Intake Total 400 ml Balance 400 ml Intake Oral 400 ml # Voids 3 Labs Laboratory Tests Test 07/05/20 09:00 07/05/20 09:05 07/06/20 07:40 Coronavirus (PCR) Not detected (Not Detected) SARS-CoV-2 Antigen (Rapid) Negative (NEGATIVE) White Blood Count 8.4 x10^3/uL (4.0-11.0) Red Blood Count 4.59 x10^6/uL (4.30-5.70) Hemoglobin 13.5 g/dL (13.0-17.5) Hematocrit 39.9 % (39.0-53.0) Mean Corpuscular Volume 87 fL (79-100) Mean Corpuscular Hemoglobin 29 pg (25-35) Mean Corpuscular Hemoglobin Concent 34 g/dL (31-37) Red Cell Distribution Width 13.3 % (11.5-14.5) Platelet Count 251 x10^3/uL (140-400) Neutrophils (%) (Auto) 66 % (31-73) Lymphocytes (%) (Auto) 14 % (24-48) Monocytes (%) (Auto) 15 % (0-9) Eosinophils (%) (Auto) 4 % (0-3) Basophils (%) (Auto) 1 % (0-3) Neutrophils # (Auto) 5.5 x10^3/uL (1.8-7.7) Lymphocytes # (Auto) 1.2 x10^3/uL (1.0-4.8) Monocytes # (Auto) 1.3 x10^3/uL (0.0-1.1) Eosinophils # (Auto) 0.4 x10^3/uL (0.0-0.7) Basophils # (Auto) 0.1 x10^3/uL (0.0-0.2) Sodium Level 141 mmol/L (136-145) Potassium Level 3.9 mmol/L (3.5-5.1) Chloride Level 103 mmol/L (98-107) Carbon Dioxide Level 29 mmol/L (21-32) Anion Gap 9 (6-14) Blood Urea Nitrogen 17 mg/dL (8-26) Creatinine 1.0 mg/dL (0.7-1.3) Estimated GFR (Cockcroft-Gault) 75.2 BUN/Creatinine Ratio 17 (6-20) Glucose Level 105 mg/dL (70-99) Calcium Level 8.6 mg/dL (8.5-10.1) Total Bilirubin 0.6 mg/dL (0.2-1.0) 0.9 mg/dL (0.2-1.0) Aspartate Amino Transf (AST/SGOT) 75 U/L (15-37) 48 U/L (15-37) Alanine Aminotransferase (ALT/SGPT) 299 U/L (16-63) 214 U/L (16-63) Alkaline Phosphatase 165 U/L (46-116) 136 U/L (46-116) Total Protein 7.1 g/dL (6.4-8.2) 6.5 g/dL (6.4-8.2) Albumin 3.0 g/dL (3.4-5.0) 2.6 g/dL (3.4-5.0) Albumin/Globulin Ratio 0.7 (1.0-1.7) Lipase 64 U/L (73-393) Hepatitis A IgM Antibody Nonreactive (Nonreactive) Hepatitis B Surface Antigen Nonreactive (Nonreactive) Hepatitis B Core IgM Antibody Nonreactive (Nonreactive) Hepatitis C IgG Antibody Nonreactive (Nonreactive) Direct Bilirubin 0.2 mg/dL (0.0-0.2) Laboratory Tests Test 07/06/20 07:40 Total Bilirubin 0.9 mg/dL (0.2-1.0) Direct Bilirubin 0.2 mg/dL (0.0-0.2) Aspartate Amino Transf (AST/SGOT) 48 U/L (15-37) Alanine Aminotransferase (ALT/SGPT) 214 U/L (16-63) Alkaline Phosphatase 136 U/L (46-116) Total Protein 6.5 g/dL (6.4-8.2) Albumin 2.6 g/dL (3.4-5.0) Justicifation of Admission Dx: Justifications for Admission: Justification of Admission Dx: Yes CHARISSE MEZA APRN Jul 06, 2020 11:30
[2020-07-06] MEDS ORDERED: NORMAL SALINE IV ONE (12:00)
[2020-07-06] MEDS ORDERED: SINCALIDE IV ONE (12:00)
--- NOTE | 2020-07-06 13:01 | RAD ---
EXAM: Nuclear hepatobiliary scan. HISTORY: Right upper quadrant pain. Abnormal liver function laboratory values. TECHNIQUE: Following intravenous administration of 5.5 mCi Tc 99m Choletec, anterior images of the ab domen were obtained at five minute intervals through one hour. Subsequently, sincalide was administer ed and additional images to assess gallbladder ejection fraction were obtained. FINDINGS: There is prompt radiotracer uptake by the liver. No focal defect is seen. There is normal e xcretion into the biliary tree. The gallbladder is visualized within 15 minutes and there is free shavon w into the duodenum. The gallbladder ejection fraction is 9 percent. IMPRESSION: Severely decreased gallbladder ejection fraction of 9 percent. Electronically signed by: Jaja Brennan MD (07/06/2020 12:59 PM) [id number]
--- NOTE | 2020-07-06 14:51 | NUR ---
SW following for discharge planning. Spoke with RN and reviewed chart. Pt remains on IV Zosyn and room air. Discharge plan remains home, self-care. Pt advanced to regular. No plans for surgery per chart review. SW following as needed. No anticipated SW needs on discharge.
[2020-07-06 15:00] VITALS: BP 158/80
--- NOTE | 2020-07-06 15:50 | PDOC ---
SURGICAL PROGRESS NOTE DATE: 07/06/20 TIME: 15:48 Subjective Pt with c/o persistent RUQ pain, not changed Vital Signs Vital Signs Date Time Temp Pulse Resp B/P (MAP) Pulse Ox O2 Delivery O2 Flow Rate FiO2 07/06/20 15:00 97.7 81 18 158/80 (106) 93 Room Air 97.7 I&O Intake and Output 07/06/20 07:00 Intake Total 400 ml Balance 400 ml Intake Oral 400 ml # Voids 3 General: Alert, Oriented X3, Cooperative, No acute distress Abdomen: Soft, Other (mild TTP RUQ) Labs Laboratory Tests Test 07/05/20 09:00 07/05/20 09:05 07/06/20 07:40 Coronavirus (PCR) Not detected (Not Detected) SARS-CoV-2 Antigen (Rapid) Negative (NEGATIVE) White Blood Count 8.4 x10^3/uL (4.0-11.0) Red Blood Count 4.59 x10^6/uL (4.30-5.70) Hemoglobin 13.5 g/dL (13.0-17.5) Hematocrit 39.9 % (39.0-53.0) Mean Corpuscular Volume 87 fL (79-100) Mean Corpuscular Hemoglobin 29 pg (25-35) Mean Corpuscular Hemoglobin Concent 34 g/dL (31-37) Red Cell Distribution Width 13.3 % (11.5-14.5) Platelet Count 251 x10^3/uL (140-400) Neutrophils (%) (Auto) 66 % (31-73) Lymphocytes (%) (Auto) 14 % (24-48) Monocytes (%) (Auto) 15 % (0-9) Eosinophils (%) (Auto) 4 % (0-3) Basophils (%) (Auto) 1 % (0-3) Neutrophils # (Auto) 5.5 x10^3/uL (1.8-7.7) Lymphocytes # (Auto) 1.2 x10^3/uL (1.0-4.8) Monocytes # (Auto) 1.3 x10^3/uL (0.0-1.1) Eosinophils # (Auto) 0.4 x10^3/uL (0.0-0.7) Basophils # (Auto) 0.1 x10^3/uL (0.0-0.2) Sodium Level 141 mmol/L (136-145) Potassium Level 3.9 mmol/L (3.5-5.1) Chloride Level 103 mmol/L (98-107) Carbon Dioxide Level 29 mmol/L (21-32) Anion Gap 9 (6-14) Blood Urea Nitrogen 17 mg/dL (8-26) Creatinine 1.0 mg/dL (0.7-1.3) Estimated GFR (Cockcroft-Gault) 75.2 BUN/Creatinine Ratio 17 (6-20) Glucose Level 105 mg/dL (70-99) Calcium Level 8.6 mg/dL (8.5-10.1) Total Bilirubin 0.6 mg/dL (0.2-1.0) 0.9 mg/dL (0.2-1.0) Aspartate Amino Transf (AST/SGOT) 75 U/L (15-37) 48 U/L (15-37) Alanine Aminotransferase (ALT/SGPT) 299 U/L (16-63) 214 U/L (16-63) Alkaline Phosphatase 165 U/L (46-116) 136 U/L (46-116) Total Protein 7.1 g/dL (6.4-8.2) 6.5 g/dL (6.4-8.2) Albumin 3.0 g/dL (3.4-5.0) 2.6 g/dL (3.4-5.0) Albumin/Globulin Ratio 0.7 (1.0-1.7) Lipase 64 U/L (73-393) Hepatitis A IgM Antibody Nonreactive (Nonreactive) Hepatitis B Surface Antigen Nonreactive (Nonreactive) Hepatitis B Core IgM Antibody Nonreactive (Nonreactive) Hepatitis C IgG Antibody Nonreactive (Nonreactive) Direct Bilirubin 0.2 mg/dL (0.0-0.2) Laboratory Tests Test 07/06/20 07:40 Total Bilirubin 0.9 mg/dL (0.2-1.0) Direct Bilirubin 0.2 mg/dL (0.0-0.2) Aspartate Amino Transf (AST/SGOT) 48 U/L (15-37) Alanine Aminotransferase (ALT/SGPT) 214 U/L (16-63) Alkaline Phosphatase 136 U/L (46-116) Total Protein 6.5 g/dL (6.4-8.2) Albumin 2.6 g/dL (3.4-5.0) I have reviewed the following HIDA with decreased ejection fraction of 9% CT with some inflammation in RUQ (pancreatitis versus mesenteritis) Assessment/Plan RUQ pain etiology unknown may be a component of biliary dyskinesia. Have offered cholecystectomy. Pt and pt's will consider, although this may not resolve symptoms. Justicifation of Admission Dx: Justifications for Admission: Justification of Admission Dx: Yes RAHUL LEWIS MD Jul 06, 2020 15:50
[2020-07-06 19:00] VITALS: BP 113/70
[2020-07-06 23:04] VITALS: BP 129/71
[2020-07-07] MEDS: IV 1/2 NORMAL SALINE 1,000 ML IV SCH ×2 (00:15→13:35)
[2020-07-07 03:00] VITALS: BP 141/76
[2020-07-07] MEDS: PIPERACILLIN/TAZOBACTAM 3.375 GM in IV NORMAL SALINE 50ML 50 ML IV SCH ×4 (05:01→23:34)
[2020-07-07 07:00] VITALS: BP 145/67
[2020-07-07] MEDS: PANTOPRAZOLE 40 MG TABLET.DR. PO SCH (07:30)
--- NOTE | 2020-07-07 09:03 | PDOC ---
SURGICAL PROGRESS NOTE DATE: 07/07/20 TIME: 09:02 Subjective agreeable to surgery mild RUQ pain Vital Signs Vital Signs Date Time Temp Pulse Resp B/P (MAP) Pulse Ox O2 Delivery O2 Flow Rate FiO2 07/07/20 07:00 98.1 73 18 145/67 (93) 93 Room Air 98.1 I&O Intake and Output 07/07/20 07:00 Intake Total 510 ml Balance 510 ml Intake Oral 460 ml IV Total 50 ml # Voids 7 General: Alert, Oriented X3, Cooperative Abdomen: Soft Labs Laboratory Tests Test 07/05/20 09:05 07/06/20 07:40 White Blood Count 8.4 x10^3/uL (4.0-11.0) Red Blood Count 4.59 x10^6/uL (4.30-5.70) Hemoglobin 13.5 g/dL (13.0-17.5) Hematocrit 39.9 % (39.0-53.0) Mean Corpuscular Volume 87 fL (79-100) Mean Corpuscular Hemoglobin 29 pg (25-35) Mean Corpuscular Hemoglobin Concent 34 g/dL (31-37) Red Cell Distribution Width 13.3 % (11.5-14.5) Platelet Count 251 x10^3/uL (140-400) Neutrophils (%) (Auto) 66 % (31-73) Lymphocytes (%) (Auto) 14 % (24-48) Monocytes (%) (Auto) 15 % (0-9) Eosinophils (%) (Auto) 4 % (0-3) Basophils (%) (Auto) 1 % (0-3) Neutrophils # (Auto) 5.5 x10^3/uL (1.8-7.7) Lymphocytes # (Auto) 1.2 x10^3/uL (1.0-4.8) Monocytes # (Auto) 1.3 x10^3/uL (0.0-1.1) Eosinophils # (Auto) 0.4 x10^3/uL (0.0-0.7) Basophils # (Auto) 0.1 x10^3/uL (0.0-0.2) Sodium Level 141 mmol/L (136-145) Potassium Level 3.9 mmol/L (3.5-5.1) Chloride Level 103 mmol/L (98-107) Carbon Dioxide Level 29 mmol/L (21-32) Anion Gap 9 (6-14) Blood Urea Nitrogen 17 mg/dL (8-26) Creatinine 1.0 mg/dL (0.7-1.3) Estimated GFR (Cockcroft-Gault) 75.2 BUN/Creatinine Ratio 17 (6-20) Glucose Level 105 mg/dL (70-99) Calcium Level 8.6 mg/dL (8.5-10.1) Total Bilirubin 0.6 mg/dL (0.2-1.0) 0.9 mg/dL (0.2-1.0) Aspartate Amino Transf (AST/SGOT) 75 U/L (15-37) 48 U/L (15-37) Alanine Aminotransferase (ALT/SGPT) 299 U/L (16-63) 214 U/L (16-63) Alkaline Phosphatase 165 U/L (46-116) 136 U/L (46-116) Total Protein 7.1 g/dL (6.4-8.2) 6.5 g/dL (6.4-8.2) Albumin 3.0 g/dL (3.4-5.0) 2.6 g/dL (3.4-5.0) Albumin/Globulin Ratio 0.7 (1.0-1.7) Lipase 64 U/L (73-393) Hepatitis A IgM Antibody Nonreactive (Nonreactive) Hepatitis B Surface Antigen Nonreactive (Nonreactive) Hepatitis B Core IgM Antibody Nonreactive (Nonreactive) Hepatitis C IgG Antibody Nonreactive (Nonreactive) Direct Bilirubin 0.2 mg/dL (0.0-0.2) Assessment/Plan plan for lap dotty today Justicifation of Admission Dx: Justifications for Admission: Justification of Admission Dx: Yes CHARISSE MEZA APRN Jul 07, 2020 09:02
--- NOTE | 2020-07-07 10:09 | NUR ---
patient refused shower X2 stating he will shower when he goes home. chlorhexadine wipes provided and instructions on how to use them.
--- NOTE | 2020-07-07 10:14 | PDOC ---
Date of Service: DATE: 07/07/20 TIME: 10:11 Subjective: Subjective: Waiting for surgery, wants something to drink. Objective: Vital Signs: Vital Signs Date Time Temp Pulse Resp B/P (MAP) Pulse Ox O2 Delivery O2 Flow Rate FiO2 07/07/20 08:00 Room Air 07/07/20 07:00 98.1 73 18 145/67 (93) 93 98.1 Imaging: HIDA 07/06 IMPRESSION: Severely decreased gallbladder ejection fraction of 9 percent. PE: GEN: NAD - walking around room LUNGS: CTAB HEART: RRR ABD: S/ND/NT NEURO/PSYCH: A & O 3 A/P: Abnormal GB EF (9%) Chronic pain including RUQ discomfort w/ movement Chills/sweats - recurrent at home, none here Elevated LFTs (some improvement yesterday), fatty liver COVID negative 07/05 -- Plans for cholecystectomy today. Justicifation of Admission Dx: Justifications for Admission: Justification of Admission Dx: Yes JUAN NICHOLSON Jul 07, 2020 10:14
[2020-07-07 10:41] VITALS: BP 137/77
[2020-07-07] MEDS ORDERED: IV RINGERS,LACTATED 1000ML 1,000 ML IV SCH (12:15)
[2020-07-07] MEDS ORDERED: fentaNYL PF VIAL 100 MCG/2 ML VIAL IVP PRN (12:15)
[2020-07-07] MEDS ORDERED: BISACODYL 10 MG SUPP.RECT. ONE (12:43)
[2020-07-07] MEDS ORDERED: SURGICEL HEMOSTAT 4X8 EACH. ONE (12:43)
[2020-07-07] MEDS ORDERED: BUPIVACAINE-EPI 0.5% 30 ML VIAL KIT. ONE (12:43)
[2020-07-07] MEDS ORDERED: IOHEXOL 300 MG/ML 50 ML VIAL. ONE (12:43)
[2020-07-07] MEDS ORDERED: HEPARIN 1,000 UNIT in IV NORMAL SALINE 1,000 ML for SURG PERIOP IRR ONE (12:46)
--- NOTE | 2020-07-07 13:10 | PDOC ---
SURGICAL PROGRESS NOTE DATE: 07/07/20 TIME: 13:07 Subjective Pre-Op Note 65 yo M with RUQ abd pain. CT concerning for inflammation, unknown etiology. US without obvious findings. HIDA with decreased ejection fraction. Symptoms may be secondary to biliary dyskinesia/acalculous cholecystitis. TO OR for laparoscopic versus open cholecystectomy with cholangiogram. R/R/B/A d/w pt and pt's . Risks, including, but not limited to: bleeding, infection, damage to surrounding structures, risk of anesthesia, risk of open, risk of not resolving symptoms. They appear to understand, their questions are answered and they elect to proceed. Pt with history of malignant hyperthemia, anesthesia aware. Vital Signs Vital Signs Date Time Temp Pulse Resp B/P (MAP) Pulse Ox O2 Delivery O2 Flow Rate FiO2 07/07/20 10:41 97.7 68 18 137/77 (97) 94 Room Air 97.7 I&O Intake and Output 07/07/20 07:00 Intake Total 510 ml Balance 510 ml Intake Oral 460 ml IV Total 50 ml # Voids 7 Labs Laboratory Tests Test 07/06/20 07:40 Total Bilirubin 0.9 mg/dL (0.2-1.0) Direct Bilirubin 0.2 mg/dL (0.0-0.2) Aspartate Amino Transf (AST/SGOT) 48 U/L (15-37) Alanine Aminotransferase (ALT/SGPT) 214 U/L (16-63) Alkaline Phosphatase 136 U/L (46-116) Total Protein 6.5 g/dL (6.4-8.2) Albumin 2.6 g/dL (3.4-5.0) Justicifation of Admission Dx: Justifications for Admission: Justification of Admission Dx: Yes RAHUL LEWIS MD Jul 07, 2020 13:10
--- NOTE | 2020-07-07 14:31 | RAD ---
INDICATION: Fluoroscopy for procedure.Reason: CHOLANGIOGRAMS DONE IN OR WITH C-ARM,FL TIME =.7 MIN 2 IMAGES SENT / Spl. Instructions: / History: Cholecystectomy IMPRESSION: Fluoroscopy was utilized by the clinical service to assist with their procedure. There are 2 saved images/series. 0.7 minutes of fluoroscopy time was used. The limited saved images show spot images the upper abdomen with contrast within the common bile duct with contrast seen at the duodenum without evidence of common bile duct obstruction. At the distal m ost aspect of the common bile duct there is either some tortuosity of the vessel or small nonobstruct anat filling defect in the region. This dictation is for the usage of fluoroscopy only. Please see the clinical service's procedure note for detail on the procedure. Electronically signed by: Damion Coates MD (07/07/2020 2:29 PM) [id number]
[2020-07-07] MEDS: fentaNYL PF VIAL 100 MCG/2 ML VIAL IVP PRN ×2 (14:52→15:10)
[2020-07-07] MEDS: PROCHLORPERAZINE 10 MG/2 ML VIAL. IVP PRN ×2 (14:52→15:10)
[2020-07-07] MEDS ORDERED: DEXTROSE 50% 25 GM / 50ML DISP.SYRIN. IV PRN (15:30)
[2020-07-07] MEDS ORDERED: NALOXONE 0.4 MG/ML VIAL. IV PRN (15:30)
[2020-07-07] MEDS ORDERED: 0.9 % SODIUM CHLORIDE 10 ML DISP.SYRIN. IV PRN (15:30)
[2020-07-07] MEDS ORDERED: MORPHINE SULFATE 2 MG/ML VIAL. IV PRN (15:30)
[2020-07-07] MEDS ORDERED: IV NORMAL SALINE 1000ML BAG 1,000 ML IV SCH (15:30)
[2020-07-07] MEDS ORDERED: ONDANSETRON PF 4 MG/2 ML VIAL. IVP PRN (15:30)
--- NOTE | 2020-07-07 15:39 | PDOC4 ---
OPERATIVE NOTE Date: Date: Jul 07, 2020 Pre-Op Diagnosis: RUQ pain Post-Op Diagnosis: same Procedure Performed: laparoscopic cholecystectomy with cholangiogram Surgeon: David Lewis Anesthesia Type: GETA plus local Blood Loss: 50 Specimans Obtained: gallbladder Findings: fatty liver, but otherwise normal, distended gallbladder, essentially normal cholangiogram (distal tortuosity) Complications: none Operative Note: After obtaining informed consent, patient was taken to OR, induced under GETA and prepped in the usual fashion. 5 mm port placed umbilical and RUQ, 12 port placed epigastric, all under laparoscopic guidance. Abdominal cavity was explored and noted as above. Gallbladder grasped and drained dark bile. Gallbladder taken off fossa in dome down fashion using cautery. Cystic artery ligated with clips and divided. Cholangiogram was obtained via cystic duct and was normal except for minimal distal tortuosity. Cystic duct controlled with hemolok and clips. Gallbladder placed in bag, delivered and sent to pathology. Copious irrigation. No evidence of bleeding or other pathology. Ports removed without bleeding. Fascia repaired with 0 vicryl. Skin repaired with 4 0 monocryl. Dressing placed. Patient tolerated procedure well and sent to PACU in stable condition. All counts correct. Wound class is 2. RAHUL LEWIS MD Jul 07, 2020 15:39
[2020-07-07] MEDS: IV RINGERS,LACTATED 1000ML 1,000 ML IV SCH (16:00)
--- NOTE | 2020-07-07 16:01 | NUR ---
ARLEEN following for discharge planning. Spoke with RN and reviewed chart. Pt is having surgery today. Pt not ready for discharge. SW following. Addendum: 07/10/20 at 0946 by MITUL BACON Pt discharged home, self-care. No further SW needs at this time.
[2020-07-07] MEDS: HYDROcodone/APAP 5/325MG 1 TAB TABLET PO PRN (17:35)
[2020-07-07 19:00] VITALS: BP 106/56
[2020-07-07] MEDS: DOCUSATE SODIUM 100 MG CAPSULE. PO SCH (21:00)
--- NOTE | 2020-07-07 21:56 | PN ---
DATE: 07/07/2020 SUBJECTIVE: This 65-year-old white male remains hospitalized with abdominal pain and elevated liver function test. He has remained afebrile. His HIDA scan yesterday shows markedly reduced ejection fraction, gallbladder down to 9% and he is scheduled for cholecystectomy this afternoon. OBJECTIVE: VITAL SIGNS: Stable. He is afebrile. GENERAL: He is awake, alert. CHEST: Clear. HEART: Regular. ABDOMEN: Has ongoing right upper quadrant tenderness, but it definitely has diminished from preadmission. LABORATORY DATA: Liver and function tests have fallen somewhat further this morning with alkaline phosphatase down to 136, ALT down to [address] down to 48. Lipase was normal as mentioned yesterday. IMPRESSION: Biliary dyskinesia with abdominal pain and elevated liver function tests, likely with some infection at least prior to admission with possibly passed stones. PLAN: Cholecystectomy today with plans to follow. CAROLYN DOLL MD DR: BRITTNEE/og JOB#: [id number] / [id number]
[2020-07-07 23:00] VITALS: BP 147/74
[2020-07-08] MEDS: IV RINGERS,LACTATED 1000ML 1,000 ML IV SCH (02:00)
[2020-07-08] MEDS: IV 1/2 NORMAL SALINE 1,000 ML IV SCH (02:55)
[2020-07-08 03:00] VITALS: BP 135/66
[2020-07-08] MEDS: PANTOPRAZOLE 40 MG TABLET.DR. PO SCH (06:12)
[2020-07-08] MEDS: PIPERACILLIN/TAZOBACTAM 3.375 GM in IV NORMAL SALINE 50ML 50 ML IV SCH (06:13)
[2020-07-08 07:36] LABS: BASO % 1 % (0-3); EOS % 0 % (0-3); HEMATOCRIT 39.3 % (39.0-53.0); LYMPH # 1.5 x10^3/uL (1.0-4.8); LYMPH % 16 % (24-48); MEAN CORPUSCULAR HEMOGLOBIN 29 pg (25-35); MEAN CORPUSCULAR HGB CONC 33 g/dL (31-37); MEAN CORPUSCULAR VOLUME 89 fL (79-100); MONO # 0.8 x10^3/uL (0.0-1.1); MONO % 8 % (0-9); NEUT # 7.4 x10^3/uL (1.8-7.7); NEUT % 75 % (31-73); PLATELET COUNT 293 x10^3/uL (140-400); RED BLOOD COUNT 4.43 x10^6/uL (4.30-5.70); RED CELL DISTRIBUTION WIDTH 13.9 % (11.5-14.5); WHITE BLOOD COUNT 9.7 x10^3/uL (4.0-11.0)
[2020-07-08 07:44] VITALS: BP 127/66
[2020-07-08 08:08] LABS: ALBUMIN 2.7 g/dL (3.4-5.0); DIRECT BILIRUBIN 0.2 mg/dL (0.0-0.2); TOTAL BILIRUBIN 0.6 mg/dL (0.2-1.0); TOTAL PROTEIN 6.6 g/dL (6.4-8.2)
[2020-07-08] MEDS ORDERED: LACTOBACILLUS RHAMNOSUS GG 1 CAPSULE. PO SCH (09:00)
[2020-07-08] MEDS: DOCUSATE SODIUM 100 MG CAPSULE. PO SCH (09:01)
[2020-07-08] MEDS: HYDROcodone/APAP 5/325MG 1 TAB TABLET PO PRN (09:02)
[2020-07-08] MEDS ORDERED: HYDR-2761 PO (09:55)
[2020-07-08] MEDS ORDERED: DOCU-153 PO (09:55)
--- NOTE | 2020-07-08 09:59 | PDOC ---
SURGICAL PROGRESS NOTE DATE: 07/08/20 TIME: 09:58 Subjective tolerating diet pain managed incisional soreness Vital Signs Vital Signs Date Time Temp Pulse Resp B/P (MAP) Pulse Ox O2 Delivery O2 Flow Rate FiO2 07/08/20 09:02 Room Air 07/08/20 07:44 97.7 64 20 127/66 (86) 96 97.7 07/07/20 15:44 2.0 I&O Intake and Output 07/08/20 07:00 Intake Total 1650 ml Output Total 375 ml Balance 1275 ml Intake Oral 650 ml IV Total 1000 ml Output Urine Total 325 ml Estimated Blood Loss 50 ml # Voids 2 General: Alert, Oriented X3, Cooperative Abdomen: Soft, Other (lap dressings dry) Labs Laboratory Tests Test 07/07/20 21:11 07/08/20 06:40 07/08/20 06:49 Glucose (Fingerstick) 129 mg/dL (70-99) Total Bilirubin 0.6 mg/dL (0.2-1.0) Direct Bilirubin 0.2 mg/dL (0.0-0.2) Aspartate Amino Transf (AST/SGOT) 45 U/L (15-37) Alanine Aminotransferase (ALT/SGPT) 131 U/L (16-63) Alkaline Phosphatase 118 U/L (46-116) Total Protein 6.6 g/dL (6.4-8.2) Albumin 2.7 g/dL (3.4-5.0) White Blood Count 9.7 x10^3/uL (4.0-11.0) Red Blood Count 4.43 x10^6/uL (4.30-5.70) Hemoglobin 13.0 g/dL (13.0-17.5) Hematocrit 39.3 % (39.0-53.0) Mean Corpuscular Volume 89 fL (79-100) Mean Corpuscular Hemoglobin 29 pg (25-35) Mean Corpuscular Hemoglobin Concent 33 g/dL (31-37) Red Cell Distribution Width 13.9 % (11.5-14.5) Platelet Count 293 x10^3/uL (140-400) Neutrophils (%) (Auto) 75 % (31-73) Lymphocytes (%) (Auto) 16 % (24-48) Monocytes (%) (Auto) 8 % (0-9) Eosinophils (%) (Auto) 0 % (0-3) Basophils (%) (Auto) 1 % (0-3) Neutrophils # (Auto) 7.4 x10^3/uL (1.8-7.7) Lymphocytes # (Auto) 1.5 x10^3/uL (1.0-4.8) Monocytes # (Auto) 0.8 x10^3/uL (0.0-1.1) Eosinophils # (Auto) 0.0 x10^3/uL (0.0-0.7) Basophils # (Auto) 0.0 x10^3/uL (0.0-0.2) Laboratory Tests Test 07/07/20 21:11 07/08/20 06:40 07/08/20 06:49 Glucose (Fingerstick) 129 mg/dL (70-99) Total Bilirubin 0.6 mg/dL (0.2-1.0) Direct Bilirubin 0.2 mg/dL (0.0-0.2) Aspartate Amino Transf (AST/SGOT) 45 U/L (15-37) Alanine Aminotransferase (ALT/SGPT) 131 U/L (16-63) Alkaline Phosphatase 118 U/L (46-116) Total Protein 6.6 g/dL (6.4-8.2) Albumin 2.7 g/dL (3.4-5.0) White Blood Count 9.7 x10^3/uL (4.0-11.0) Red Blood Count 4.43 x10^6/uL (4.30-5.70) Hemoglobin 13.0 g/dL (13.0-17.5) Hematocrit 39.3 % (39.0-53.0) Mean Corpuscular Volume 89 fL (79-100) Mean Corpuscular Hemoglobin 29 pg (25-35) Mean Corpuscular Hemoglobin Concent 33 g/dL (31-37) Red Cell Distribution Width 13.9 % (11.5-14.5) Platelet Count 293 x10^3/uL (140-400) Neutrophils (%) (Auto) 75 % (31-73) Lymphocytes (%) (Auto) 16 % (24-48) Monocytes (%) (Auto) 8 % (0-9) Eosinophils (%) (Auto) 0 % (0-3) Basophils (%) (Auto) 1 % (0-3) Neutrophils # (Auto) 7.4 x10^3/uL (1.8-7.7) Lymphocytes # (Auto) 1.5 x10^3/uL (1.0-4.8) Monocytes # (Auto) 0.8 x10^3/uL (0.0-1.1) Eosinophils # (Auto) 0.0 x10^3/uL (0.0-0.7) Basophils # (Auto) 0.0 x10^3/uL (0.0-0.2) Assessment/Plan s/p dotty LFTS trending down ok to dc home Justicifation of Admission Dx: Justifications for Admission: Justification of Admission Dx: Yes CHARISSE MEZA APRN Jul 08, 2020 09:59
--- NOTE | 2020-07-08 11:11 | NUR ---
Discharge Note: BENJI MALDONADO Discharge instructions and discharge home medications reviewed with Patient and a copy given. All questions have been answered and understanding verbalized. The following instructions and handouts were given: Patient given education regarding follow up and medications. Discontinued lines and drains: Iv removed per protocol. Patient discharged home, picked up by .
--- NOTE | 2020-07-09 01:04 | DS ---
DATE OF DISCHARGE: 07/08/2020 PRIMARY DIAGNOSIS: Abdominal pain, felt due to biliary dyskinesia with cholecystitis and elevated liver function tests. ADDITIONAL DIAGNOSES: Asthma, hyperlipidemia and history of kidney stones. CHIEF COMPLAINT AND HISTORY OF PRESENT ILLNESS: This 65-year-old white male is well known to me in followup in the office. The patient was seen earlier in the week of admission with fevers, chills, weakness, dizziness, diffuse myalgias and right upper quadrant pain. Laboratory showed elevated liver function tests. It was not improving at all and was actually getting more uncomfortable. It was felt he probably had a gallbladder issue or some sort of other liver issue, probably on an infectious basis due to fevers that he was running in addition and he was admitted to the hospital. SUMMARY OF STAY: The patient was admitted. Initial laboratory showed a normal white count. Liver function tests were actually a little bit better with an alkaline phosphatase of 165, ALT of 299 and AST of 75. Lipase was within normal limits. Imaging included an ultrasound showing hepatomegaly and hepatic steatosis and simple right renal cyst. 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 Surgery and GI saw him. He did have a HIDA scan showing a severely decreased gallbladder ejection fraction at 5%, did undergo laparoscopic cholecystectomy with intraoperative cholangiograms. He was feeling better by the following day. He ran no fevers at all during the stay. Liver function tests had decreased even further by the time of discharge and it was felt he could be safely dismissed. DISPOSITION: The patient is discharged to home. DIET: Regular diet. ACTIVITY: As tolerated. FOLLOWUP: Office in 1 week. DISCHARGE MEDICATIONS: Listed on the med rec and had been addressed. CAROLYN DOLL MD DR: BRITTNEE/og JOB#: [id number] / [id number]
== END 2020-07-08 11:14 | disposition home or self-care (01) | DRG 418 ==
LOC: 5 NORTH 07:17
PROVIDERS: ADMIT Family Medicine; ATTEND Family Medicine
PROC: BF101ZZ Fluoroscopy of Bile Ducts using Low Osmolar Contrast (ICD-10-PCS; 2020-07-07)
PROC: 0FT44ZZ Resection of Gallbladder, Percutaneous Endoscopic Approach (ICD-10-PCS; principal; 2020-07-07 13:30)
DX: K82.8 Other specified diseases of gallbladder (principal); K80.40 Calculus of bile duct with cholecystitis, unspecified, without obstruction; K57.30 Diverticulosis of large intestine without perforation or abscess without bleeding; R79.89 Other specified abnormal findings of blood chemistry; K76.0 Fatty (change of) liver, not elsewhere classified; R16.0 Hepatomegaly, not elsewhere classified; Z20.822 Contact with and (suspected) exposure to COVID-19; N28.1 Cyst of kidney, acquired; E78.5 Hyperlipidemia, unspecified; E86.0 Dehydration; G89.29 Other chronic pain; I10 Essential (primary) hypertension; J45.909 Unspecified asthma, uncomplicated; Z87.442 Personal history of urinary calculi
CPT/HCPCS: 36415; 74177; 74300; 76700; 78227; 80053; 80076; 82962; 83690; 85025; 86705; 86709; 86803; 87340; 87426; A9537; J0690; J0780; J1644; J2270; J2543; J2805; J3010; J3490; J7030; J7120; Q9966; Q9967; U0003; G0378

== ENCOUNTER → 2020-07-11 | Outpatient (CLI) | payer BC ==
[2020-07-08 07:44] VITALS: BP 127/66
[~2020-07-11] MED LIST changes: +ATOR20TA58 PO; +DICL75TA PO; +DOCU-153 PO; +HYDR-2761 PO; +IOHEXOL 180 MG/ML 10 ML VIAL. ONE; +MODA100T2 PO; +methylPREDNISolone ACETATE 40 MG/ML VIAL. ONE; +methylPREDNISolone ACETATE 80 MG/ML VIAL. ONE
--- NOTE | 2020-07-11 10:41 | PDOC ---
Progress Note - Pain Clinic Date of Service: DOS: DATE: 07/11/20 TIME: 10:38 Diagnosis: Dx: Cervical radiculopathy with cervical degenerative disc disease and cervical spinal stenosis Lumbar radiculopathy with lumbar degenerative disc disease and lumbar herniated disc History or Present Illness: HPI: 65-year-old male returns for follow-up last seen October 2018. Patient underwent lumbar epidural steroid injections x2 with excellent results near 100% improvement now he is having some pain in the base the neck and bilateral upper extremities right equal to left side for the past several months patient has seen his neurosurgeon who is recommending conservative therapies at this time he is done physical therapy he is taking [id number] analgesics as well with only minimal decrease in pain also diclofenac is helping with the pain in the neck and the hands. 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 Patient reports the pain is an 8 on scale 10 is worse over the past week 6 on average for its least is a 6 today patient ports sharp tight shooting patient neck and shoulders bilaterally. Patient reports no loss of motor function with significant fatigability of both the upper extremities. Patient ports wakes him from sleep about every 5-6 hours. Physical Exam: VS: Blood pressure is 136/82 pulse 97.8 Fahrenheit height is 5 feet 10 inches weight is 223 pounds PE: PHYSICAL EXAMINATION: GENERAL: The patient is awake, alert, oriented, appropriate, very pleasant demeanor HEENT: Shows normocephalic, atraumatic. Extraocular movements are intact and symmetrical. Oral cavity: Mucous membranes moist and pink. Dentition is intact. NECK: Shows anterior throat supple without palpable lymphadenopathy noted. Swallow reflex symmetrical. CHEST: Shows normal on inspection. Breath sounds are clear bilaterally, no rales rhonchi wheezes auscultated. HEART: Shows S1, S2 clear. No murmurs auscultated. ABDOMEN: Soft, nontender, nondistended, obese. Patient has recent healing surgical scars from laparoscopic cholecystectomy. No palpable organomegaly is noted. No rebound or guarding demonstrated. BACK: Shows spine grossly in the midline. Normal-appearing cervical lordotic curvature. There is slightly increased thoracic kyphosis, some minor flattening of the lumbar lordotic curvature. Lumbar paraspinous muscles show symmetrical on inspection, on palpation shows some moderate tenderness diffusely throughout the upper, middle and lower distribution of the paraspinous muscles bilaterally without specific trigger points, without radiation of pain. The patient has good rotational motion of the lumbar spine, both laterally as well as extension and flexion without significant difficulty. No tenderness over the spinous pr ocesses, sacrum or sacroiliac regions. EXTREMITIES: Upper extremities show deep tendon reflexes 2+ in the biceps and triceps tendons. Motor exam is 4 on a scale of 5 with right strength, biceps and triceps flexion and 4/5 on the left. Peripheral pulses are 2+ radial. No peripheral edema is noted bilaterally. Upper extremities are warm and dry to touch, equal in color and appearance. SKIN: Shows warm and dry, good turgor. No edema. No sores, rashes or bruising throughout. Procedure: Procedure: Options were discussed with the patient. Patient will chart reviews his current medication regimen updated current review of systems updated today as well. We will proceed with a cervical epidural steroid injection today with fluoroscopic guidance. Risks were discussed including but not limited to: Bleeding, infection, possibility of epidural hematoma and subsequent neurological compromise, dural puncture, headaches, spinal cord and/or nerve damage, side effects of steroid medication, and poor results regarding pain control. Patient understands and wished to proceed. Patient return to clinic in approximately 4 weeks for follow-up, was counseled as return appointment activity level and side effects to be aware of. Medication Injected: Med Injected: Procedure cervical epidural steroid injection at the C6-7 level, using local anesthetic under sterile prep and drape using C-arm fluoroscopic guidance under local anesthesia medications injected ; 120 mg Depo-Medrol + 5 mL normal saline and 2 mL contrast; condition at discharge is stable patient tolerated procedure well. and had no complications Condition at Discharge: Condition at Discharge: Condition at discharge stable, patient with the procedure well and had no complications. PIETER NIEVES MD Jul 11, 2020 10:41
--- NOTE | 2020-07-11 10:42 | PDOC4 ---
PROCEDURE Procedure Patient was consented for cervical epidural steroid injection. Risks were d iscussed including but not limited to: Bleeding, infection, possibility of epidural hematoma and subsequent neurological compromise, dural puncture, headaches, spinal cord and/or nerve damage, side effects of steroid medication, and poor results regarding pain control. Patient understands and wished to proceed. Procedure cervical epidural steroid injection at the C6-7 level, using local anesthetic under sterile prep and drape using C-arm fluoroscopic guidance under local anesthesia medications injected ; 120 mg Depo-Medrol + 5 mL normal saline and 2 mL contrast; condition at discharge is stable patient tolerated procedure well. and had no complications PIETER NIEVES MD Jul 11, 2020 10:42
== END | disposition home or self-care (01) ==
LOC: PNCL 09:47
PROVIDERS: ATTEND Anesthesiology
DX: M50.10 Cervical disc disorder with radiculopathy, unspecified cervical region (principal); M51.16 Intervertebral disc disorders with radiculopathy, lumbar region; M48.061 Spinal stenosis, lumbar region without neurogenic claudication; E78.00 Pure hypercholesterolemia, unspecified; Z79.899 Other long term (current) drug therapy; Z98.890 Other specified postprocedural states; Z88.8 Allergy status to other drugs, medicaments and biological substances
CPT/HCPCS: 62321; J1030; J1040; Q9965

== ENCOUNTER → 2020-07-14 | Outpatient (CLI) | payer BC ==
[2020-07-08 07:44] VITALS: BP 127/66
[~2020-07-14] MED LIST changes: +ALBU2.5V8 IH; +CONTRAST GIVEN. MC PRN; -IOHEXOL 180 MG/ML 10 ML VIAL. ONE; +IOHEXOL 240 MG/ML 50ML VIAL. PO ONE; +IOHEXOL 300 MG/ML 100ML VIAL. IV ONE; +LACT1CAP37 PO; +TIOT18CA IH; -methylPREDNISolone ACETATE 40 MG/ML VIAL. ONE; -methylPREDNISolone ACETATE 80 MG/ML VIAL. ONE
--- NOTE | 2020-07-14 15:43 | RAD ---
EXAM: CT Abdomen and Pelvis with IV contrast CLINICAL HISTORY: Reason: RUQ PAIN / Spl. Instructions: 75ML OMNI 300 30 ML OMNI 240 PT CELL [phone] / History: . COMPARISON: none TECHNIQUE: Helical CT of the abdomen and pelvis was performed following the administration of intrave nous contrast. Axial, coronal and sagittal reformatted images were generated. PQRS compliance statement - One or more of the following individualized dose reduction techniques wer e utilized for this study: 1. Automated exposure control 2. Adjustment of the mA and/or kV according to patient size 3. Use of iterative reconstruction technique FINDINGS: Lower Chest: Linear opacities lower lobes likely scarring/atelectasis. Abdomen and Pelvis: Hepatic hypoattenuation likely fatty liver. No focal liver lesion. Accounting for postcholecystectomy change, no biliary ductal dilatation. Spleen, adrenal glands, pancreas are normal in appearance. Sym metric nephrograms. Bilateral renal cysts. No hydronephrosis. No hydroureter. Bladder wall thickening likely cystitis. Small hiatal hernia. Appendix is normal. Moderate colonic stool content is seen. No small or large nhan wel dilatation. No bowel obstruction. Colonic diverticulosis without evidence for acute diverticuliti s. No abdominal or pelvic ascites. No abdominal pelvic lymphadenopathy. Prostate measures 5 cm in transv erse dimension. Adrenal aortic ectasia without scarring calcifications. Trace fat-containing. Local hernia. Bones: Symphysis pubis degenerative changes. No aggressive osseous lesion. Trace height loss of the T11 and T12 levels likely degenerative change IMPRESSION: 1. Hepatic hypoattenuation likely fatty liver. 2. Colonic diverticulosis without evidence for acute diverticulitis. 3. Bladder wall thickening likely cystitis and can be correlated with urinalysis. 4. Appendix is normal. Moderate colonic stool content is seen. 5. Accounting for postcholecystectomy change, no biliary ductal dilatation. Electronically signed by: Haroldo Flood MD (07/14/2020 3:40 PM) [id number]
== END ==
LOC: CT 13:19
PROVIDERS: ATTEND Family Medicine
DX: K57.30 Diverticulosis of large intestine without perforation or abscess without bleeding (principal); Z90.49 Acquired absence of other specified parts of digestive tract
CPT/HCPCS: 74177; Q9966; Q9967

== ENCOUNTER → 2020-08-09 | Outpatient (CLI) | payer BC ==
[~2020-08-09] MED LIST changes: -ALBU2.5V8 IH; -CONTRAST GIVEN. MC PRN; +IOHEXOL 180 MG/ML 10 ML VIAL. ONE; -IOHEXOL 240 MG/ML 50ML VIAL. PO ONE; -IOHEXOL 300 MG/ML 100ML VIAL. IV ONE; -LACT1CAP37 PO; -TIOT18CA IH; +methylPREDNISolone ACETATE 40 MG/ML VIAL. ONE; +methylPREDNISolone ACETATE 80 MG/ML VIAL. ONE
--- NOTE | 2020-08-09 11:23 | PDOC ---
Progress Note - Pain Clinic Date of Service: DOS: DATE: 08/09/20 TIME: 11:19 Diagnosis: Dx: Cervical radiculopathy with cervical degenerative disease and cervical spinal stenosis Lumbar radiculopathy with lumbar degenerative disease lumbar herniated disc History or Present Illness: HPI: 65-year-old male returns for follow-up status post cervical epidural steroid injection x1. Patient reports near 100% improvement for the first 2 weeks then the pain began to return over the past 2 weeks in the base the neck and shoulders upper extremities bilateral posterior deltoid as well as the triceps and biceps regions into the forearms mostly posteriorly but also anteriorly with some numbness and tingling still in the hands. Patient reports is worse with activity repetitive motions driving patient reports the pain is 8 on scale 10 is worst over the past week 5 on average 3 at its least is a 5 today. Patient scribes pain is aching and tight base of neck shoulders lower extremities as well as the hands. Patient reports no new deficits. Physical Exam: VS: Blood pressure is 138/83 pulse 78 respirations 16 temperature is 97.7 F weight is 220 pounds PE: PHYSICAL EXAMINATION: GENERAL: The patient is awake, alert, oriented, appropriate, very pleasant demeanor HEENT: Shows normocephalic, atraumatic. Extraocular movements are intact and symmetrical. Oral cavity: Mucous membranes moist and pink. Dentition is intact. NECK: Shows anterior throat supple without palpable lymphadenopathy noted. Swallow reflex symmetrical. CHEST: Shows normal on inspection. Breath sounds are clear bilaterally, no rales or rhonchi. HEART: Shows S1, S2 clear. No murmurs auscultated. ABDOMEN: Soft, nontender, nondistended, obese. No palpable organomegaly is noted. BACK: Shows spine grossly in the midline. Normal-appearing cervical lordotic curvature. Cervical paraspinous muscles show symmetrical with inspection on palpation some mild tenderness diffusely in the inferior aspect the cervical paraspinous muscular bilaterally also into the superior medial trapezius bilaterally. Patient shows no trigger points no asymmetry no atrophy hypertrophy. Patient cervical spine shows good rotation of motion both laterally greater than 45 degrees closer to 90 degrees as well as full extension full forward flexion without significant pain reported. There is slightly increased thoracic kyphosis, some minor flattening of the lumbar lordotic curvature. EXTREMITIES: Upper extremities show deep tendon reflexes 2+ in the biceps and triceps tendons. Motor exam is 4 on a scale of 5 with right strength, biceps and triceps flexion and 4/5 on the left. Peripheral pulses are 2+ radial. No peripheral edema is noted bilaterally. Upper extremities are warm and dry to touch, equal in color and appearance. SKIN: Shows warm and dry, good turgor. No edema. No sores, rashes or bruising throughout. Procedure: Procedure: Options were discussed with the patient. Patient's chart was reviewed as was his current medication regimen updated current review of systems updated today as well. We will proceed with a second in the series cervical epidural steroid injection today per fluoroscopic guidance. Risks were discussed including but not limited to: Bleeding, infection, possibility of epidural hematoma and subsequent neurological compromise, dural puncture, headaches, spinal cord a nd/or nerve damage, side effects of steroid medication, and poor results regarding pain control. Patient understands and wished to proceed. Patient will return to the clinic in approximate 2 weeks for follow-up, was counseled as to return appointment activity level and side effects to be aware of. Medication Injected: Med Injected: Procedure cervical epidural steroid injection at the C6-7 level, using local anesthetic under sterile prep and drape using C-arm fluoroscopic guidance under local anesthesia medications injected ; 120 mg Depo-Medrol + 5 mL normal saline and 2 mL contrast; condition at discharge is stable patient tolerated procedure well. and had no complications Condition at Discharge: Condition at Discharge: Condition at discharge stable, patient tolerated the procedure well and had no complications. PIETER NIEVES MD Aug 09, 2020 11:23
--- NOTE | 2020-08-09 11:23 | PDOC4 ---
PROCEDURE Procedure Patient was consented for cervical epidural steroid injection. Risks were d iscussed including but not limited to: Bleeding, infection, possibility of epidural hematoma and subsequent neurological compromise, dural puncture, headaches, spinal cord and/or nerve damage, side effects of steroid medication, and poor results regarding pain control. Patient understands and wished to proceed. Procedure cervical epidural steroid injection at the C6-7 level, using local anesthetic under sterile prep and drape using C-arm fluoroscopic guidance under local anesthesia medications injected ; 120 mg Depo-Medrol + 5 mL normal saline and 2 mL contrast; condition at discharge is stable patient tolerated procedure well. and had no complications PIETER NIEVES MD Aug 09, 2020 11:23
== END | disposition home or self-care (01) ==
LOC: PNCL 10:39
PROVIDERS: ATTEND Anesthesiology
DX: M50.10 Cervical disc disorder with radiculopathy, unspecified cervical region (principal); M48.02 Spinal stenosis, cervical region; M51.16 Intervertebral disc disorders with radiculopathy, lumbar region; E78.00 Pure hypercholesterolemia, unspecified; Z79.899 Other long term (current) drug therapy; Z88.8 Allergy status to other drugs, medicaments and biological substances
CPT/HCPCS: 62321; J1030; J1040; Q9965; 77002

== ENCOUNTER → 2020-08-23 | Outpatient (CLI) | payer BC ==
--- NOTE | 2020-08-23 12:23 | PDOC ---
Progress Note - Pain Clinic Date of Service: DOS: DATE: 08/23/20 TIME: 12:18 Diagnosis: Dx: Cervical radiculopathy with cervical degenerative disc disease and cervical spinal stenosis Lumbar radiculopathy with lumbar degenerative disease and lumbar herniated disc History or Present Illness: HPI: 65-year-old male returns follow-up status post cervical epidural steroid injection x2. Patient reports about 89% improvement in the neck and bilateral upper extremity pain still some numbness in the left hand but much better than i t was the right one is doing much better as well patient reports a tingling pain aching and dull in the neck but rating the upper extremities and mostly with tingling and numbness in the hands which is improved significantly patient is increasing his activity with household activities work activities travel with greater ease and comfort using his hands with better dexterity bilaterally still some tingling worse on the left patient reports his pain is a 3 on scale 10 is worse over the past week 1 on average 0 its least is a 1 today. Patient reports no new motor or sensory deficits no bowel or bladder incontinence reports he is not sleeping well and this pain does not awaken him from sleep. Physical Exam: VS: Blood pressure is 131/76 pulse 70 respirations 18 temperature 98.0 F height 5 foot 10 inches weight is 228 pounds PE: PHYSICAL EXAMINATION: GENERAL: The patient is awake, alert, oriented, appropriate, very pleasant demeanor HEENT: Shows normocephalic, atraumatic. Extraocular movements are intact and symmetrical. Oral cavity: Mucous membranes moist and pink. Dentition is intact. NECK: Shows anterior throat supple without palpable lymphadenopathy noted. Swallow reflex symmetrical. CHEST: Shows normal on inspection. Breath sounds are clear bilaterally. HEART: Shows S1, S2 clear. No murmurs auscultated. ABDOMEN: Soft, nontender, nondistended, obese. No palpable organomegaly is noted. No rebound or guarding demonstrated. BACK: Shows spine grossly in the midline. Normal-appearing cervical lordotic curvature. Cervical spine shows symmetrical paraspinous musculature on insp ection with palpation of some moderate tenderness in the inferior aspect the cervical paraspinous musculature slightly more on the left than the right but without asymmetry, atrophy or hypertrophy. Patient has full rotation motion cervical spine both laterally as well as extension flexion without significant difficulty. There is slightly increased thoracic kyphosis, some minor fl attening of the lumbar lordotic curvature. Lumbar paraspinous muscles show symmetrical on inspection, on palpation shows some moderate tenderness diffusely throughout the upper, middle and lower distribution of the paraspinous muscles without specific trigger points, without radiation of pain. The patient has good rotational motion of the lumbar spine, both laterally as well as extension and flexion without significant difficulty. No tenderness over the spinous processes, sacrum or sacroiliac regions. EXTREMITIES: Upper extremities show deep tendon reflexes 2+ in the biceps and triceps tendons. Motor exam is 4 on a scale of 5 with right invasive manager strength, biceps and tricep flexion and 4/5 on the left. Peripheral pulses are 2+ radial. No peripheral edema is noted bilaterally. Upper extremities are warm and dry to touch, equal in color and appearance. SKIN: Shows warm and dry, good turgor. No edema. No sores, rashes or bruising throughout. Procedure: Procedure: Options were discussed with the patient. Patient chart reviewed his his current medication regimen updated current review of systems updated today as well. We will proceed with a third in the series cervical epidural steroid injection stable fluoroscopic guidance. Risks were discussed including but not limited to: Bleeding, infection, possibility of epidural hematoma and subsequent neurolo gical compromise, dural puncture, headaches, spinal cord and/or nerve damage, side effects of steroid medication, and poor results regarding pain control. Patient understands and wished to proceed. Patient will return to the clinic in approximate 2 weeks for follow-up, was counseled as return appointment activity level and side effects to be aware of. Medication Injected: Med Injected: Procedure cervical epidural steroid injection at the C6-7 level, using local anesthetic under sterile prep and drape using C-arm fluoroscopic guidance under local anesthesia medications injected ; 120 mg Depo-Medrol + 5 mL normal saline and 2 mL contrast; condition at discharge is stable patient tolerated procedure well. and had no complications Condition at Discharge: Condition at Discharge: Condition at discharge is stable, patient tolerated the procedure well and had no complications. PIETER NIEVES MD Aug 23, 2020 12:23
--- NOTE | 2020-08-23 12:24 | PDOC4 ---
PROCEDURE Procedure Patient was consented for cervical epidural steroid injection. Risks were d iscussed including but not limited to: Bleeding, infection, possibility of epidural hematoma and subsequent neurological compromise, dural puncture, headaches, spinal cord and/or nerve damage, side effects of steroid medication, and poor results regarding pain control. Patient understands and wished to proceed. Procedure cervical epidural steroid injection at the C6-7 level, using local anesthetic under sterile prep and drape using C-arm fluoroscopic guidance under local anesthesia medications injected ; 120 mg Depo-Medrol + 5 mL normal saline and 2 mL contrast; condition at discharge is stable patient tolerated procedure well. and had no complications PIETER NIEVES MD Aug 23, 2020 12:24
== END | disposition home or self-care (01) ==
LOC: PNCL 11:08
PROVIDERS: ATTEND Anesthesiology
DX: M50.10 Cervical disc disorder with radiculopathy, unspecified cervical region (principal); M48.02 Spinal stenosis, cervical region; M51.16 Intervertebral disc disorders with radiculopathy, lumbar region; E78.00 Pure hypercholesterolemia, unspecified; Z79.899 Other long term (current) drug therapy; Z98.890 Other specified postprocedural states
CPT/HCPCS: 62321; J1030; J1040; Q9965

== ENCOUNTER → 2020-10-31 | Outpatient (CLI) | payer BC ==
[~2020-10-31] MED LIST changes: +ALBU2.5V8 IH; -IOHEXOL 180 MG/ML 10 ML VIAL. ONE; +LACT1CAP37 PO; +TIOT18CA IH; -methylPREDNISolone ACETATE 40 MG/ML VIAL. ONE; -methylPREDNISolone ACETATE 80 MG/ML VIAL. ONE
[2020-10-31 15:21] LABS: BASO % 1 % (0-3); EOS # 0.3 x10^3/uL (0.0-0.7); EOS % 3 % (0-3); HEMATOCRIT 38.7 % (39.0-53.0); HEMOGLOBIN 13.1 g/dL (13.0-17.5); LYMPH # 1.7 x10^3/uL (1.0-4.8); LYMPH % 21 % (24-48); MEAN CORPUSCULAR HEMOGLOBIN 30 pg (25-35); MEAN CORPUSCULAR HGB CONC 34 g/dL (31-37); MEAN CORPUSCULAR VOLUME 88 fL (79-100); MONO # 0.8 x10^3/uL (0.0-1.1); MONO % 10 % (0-9); NEUT # 5.5 x10^3/uL (1.8-7.7); NEUT % 66 % (31-73); PLATELET COUNT 355 x10^3/uL (140-400); RED BLOOD COUNT 4.38 x10^6/uL (4.30-5.70); RED CELL DISTRIBUTION WIDTH 13.9 % (11.5-14.5); WHITE BLOOD COUNT 8.3 x10^3/uL (4.0-11.0)
[2020-10-31 15:38] LABS: ALBUMIN 3.2 g/dL (3.4-5.0); ALBUMIN/GLOBULIN RATIO 0.8 (1.0-1.7); CALCIUM 8.2 mg/dL (8.5-10.1); CREATININE 1.2 mg/dL (0.7-1.3); TOTAL BILIRUBIN 0.3 mg/dL (0.2-1.0); TOTAL PROTEIN 7.2 g/dL (6.4-8.2)
--- NOTE | 2020-11-02 10:00 | NUR ---
PATIENT IS MRSA POSITIVE. NOTIFIED PATIENT'S PATIENT IS AT WORK UNABLE TO TALK. CALLED IN THE PRESCRIPTIONS TO [facility]. PATIENT TO START BACTROBAN AND HIBICLENS ON 11/03/20. ALSO NOTIFIED JEM AT DR DOUGLASS'S OFFICE.
== END ==
LOC: SURGPAT 14:27
PROVIDERS: ATTEND Neurological Surgery
DX: Z01.818 Encounter for other preprocedural examination (principal); M47.22 Other spondylosis with radiculopathy, cervical region; M54.2 Cervicalgia
CPT/HCPCS: 36415; 80053; 85025; 87641

== ENCOUNTER 2020-11-08 10:34 | Observation (INO) | payer BC ==
[2020-10-31 15:02] VITALS: BP 131/71
--- NOTE | 2020-11-07 14:45 | HP ---
ADMIT DATE: 11/08/2020 PREOP HISTORY AND PHYSICAL HISTORY OF PRESENT ILLNESS: The patient is having difficulty with neck pain and pain that radiates to both of her shoulders, arms and hands. Both sides are equal. He said the problem began in August of 2019 after he hit his head. He said the problem improved and then worsened again. At its worst, the pain is 9-10/10. It is worse first thing in the morning and then it improves to a degree as the day progresses. Lifting his arms increases his pain. Using his hands is painful for him. He said prior to this, he had neck pain intermittently, and then it would improve with chiropractic treatment. He takes diclofenac. He had cervical epidural steroid injections as well as a Medrol Dosepak, which he said helped him temporarily. 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 He is continuing to work. CURRENT MEDICATIONS: Atorvastatin, Singulair, diclofenac. ALLERGIES: No known drug allergies. PAST MEDICAL HISTORY: Arthritis, asthma, neck injury. FAMILY HISTORY: Alzheimer disease. SOCIAL HISTORY: Employed as a local company truck driver. . Does not smoke. Drinks alcohol 1-2 times per year. REVIEW OF SYSTEMS: A 12-point review of systems was performed and is noncontributory except that mentioned above. PHYSICAL EXAMINATION: GENERAL: Alert, pleasant, in no acute distress. HEENT: Head is normocephalic, atraumatic. NECK: [id number] tenderness with palpation of the posterior cervical region. SKIN: Warm and dry. MUSCULOSKELETAL: Cervical paraspinal muscle bulk is normal, restricted range of motion of the cervical spine, normal range of motion of the upper extremities bilaterally. EXTREMITIES: No clubbing, cyanosis or edema. NEUROLOGIC: Alert and oriented x 3. Normal recent and remote memory. Strength is 5/5 in the upper and lower extremities, sensory was intact to light touch in the upper and lower extremities, reflexes were present and symmetric in the upper and lower extremities bilaterally, normal gait. IMAGING DATA: I reviewed his cervical MRI scan. There is diffuse cervical spondylosis. There are multiple disk bulging with mild stenosis from C3-C4 to C6-C7. There is moderately severe foraminal narrowing, which is most significant at C6-C7, but also to a lesser extent at C4-C5. There is moderate neural foraminal narrowing at the remaining levels. ASSESSMENT AND PLAN: The most difficult problem with the patient is determining which levels to operate upon. Clearly C6-C7 is the most severe. An amount of severity at C4-C5 with the other levels have a degree of neural foraminal narrowing as well. I explained to the patient that if I was going to operate at C6-C7, I would decompress the dura and nerve root and see how he does. I explained that the surgery could make him worse or he may not be improved with surgery. I outlined the risk of surgery and the technique. I used models and explained the use of anterior plating. I discussed the expected postoperative course with him and his . They understand that would like to go ahead. ARNIE DR: Wilbert TID: [id number]
[2020-11-08] VITALS (9 sets, daily range): BP systolic 108–167; BP diastolic 50–94
[~2020-11-08] VITALS: Ht 175.3 cm; Wt 101.6 kg
[~2020-11-08 10:34] MED LIST changes: +BUPIVACAINE-EPI 0.5%-1:200000 MPF 30 ML VIAL. ONE; +GELATIN SPONGE SIZE 100. ONE; +HYDROmorphone 2 MG/ML VIAL IVP PRN; +IV RINGERS,LACTATED 1000ML 1,000 ML IV SCH; +PROCHLORPERAZINE 10 MG/2 ML VIAL. IVP PRN; +THROMBIN TOPICAL 20,000 UNIT SPRAY.SYRN KIT TP ONE; +VANCOMYCIN 1GM IVPB FOR OMNI 250 ML IV PRN; +fentaNYL PF VIAL 100 MCG/2 ML VIAL IVP PRN
[2020-11-08] MEDS ORDERED: fentaNYL PF VIAL 100 MCG/2 ML VIAL IVP PRN ×2 (11:15→15:00)
[2020-11-08] MEDS ORDERED: PROPOFOL 10 MG/ML (20ML) VIAL. IV ONE ×2 (11:17→14:26)
[2020-11-08] MEDS ORDERED: REMIFENTANIL 2 MG VIAL. IV ONE (11:17)
[2020-11-08] MEDS ORDERED: LIDOCAINE 2% PF 5 ML VIAL. ONE (11:17)
[2020-11-08] MEDS ORDERED: MIDAZOLAM HCL/PF 2 MG/2 ML VIAL. ONE (11:18)
[2020-11-08] MEDS ORDERED: ROCURONIUM 50 MG/5 ML VIAL. ONE (11:18)
[2020-11-08] MEDS ORDERED: fentaNYL PF VIAL 250 MCG/5 ML VIAL ONE (11:18)
[2020-11-08] MEDS ORDERED: PROPOFOL 100 ML IV ONE ×2 (11:24→13:51)
[2020-11-08] MEDS: fentaNYL PF VIAL 100 MCG/2 ML VIAL IVP PRN ×2 (11:37→11:45)
--- NOTE | 2020-11-08 11:49 | NUR ---
Patient completed all 5 days of treatment for MRSA positive in the nares. Including his bactroban and hibiclens showers.
[2020-11-08] MEDS ORDERED: VANCOMYCIN 1GM IVPB FOR OMNI. ONE (12:00)
[2020-11-08] MEDS ORDERED: ceFAZolin 2GM PREMIX 2 GM/50 ML BAG IV ONE (12:00)
[2020-11-08] MEDS ORDERED: BUPIVACAINE-EPI 0.5%-1:200000 MPF 30 ML VIAL. INJ ONE (13:25)
[2020-11-08] MEDS ORDERED: GELATIN SPONGE SIZE 100. TP ONE (13:25)
[2020-11-08] MEDS ORDERED: THROMBIN TOPICAL 20,000 UNIT SPRAY.SYRN KIT TP ONE (13:25)
[2020-11-08] MEDS ORDERED: PROPOFOL 50 ML IV ONE (14:07)
[2020-11-08] MEDS ORDERED: REMIFENTANIL 1 MG VIAL. IV ONE (14:24)
[2020-11-08] MEDS ORDERED: NALOXONE 0.4 MG/ML VIAL. IV PRN (15:00)
[2020-11-08] MEDS ORDERED: POTASSIUM CL 20MEQ D5-0.45NACL 1,000 ML IV SCH (15:00)
[2020-11-08] MEDS ORDERED: MAG HYDROX/ALUMINUM HYD/SIMETH 30 ML ORAL.SUSP PO PRN (15:00)
[2020-11-08] MEDS ORDERED: ALBUTEROL SULFATE 2.5 MG/3 ML NEBU. INH PRN ×2 (15:00)
[2020-11-08] MEDS ORDERED: CALCIUM CARBONATE 500 MG TAB.CHEW PO PRN (15:00)
[2020-11-08] MEDS ORDERED: NON FORMULARY ITEM (Modafinil 100 MG) PO PRN (15:00)
[2020-11-08] MEDS ORDERED: ACETAMINOPHEN 325 MG TABLET. PO PRN (15:00)
[2020-11-08] MEDS ORDERED: diphenhydrAMINE HCL 25 MG CAPSULE PO PRN (15:00)
[2020-11-08] MEDS ORDERED: 0.9 % SODIUM CHLORIDE 10 ML DISP.SYRIN. IV PRN (15:00)
[2020-11-08] MEDS ORDERED: ONDANSETRON PF 4 MG/2 ML VIAL. IVP PRN (15:00)
[2020-11-08] MEDS ORDERED: MAGNESIUM HYDROXIDE 2,400 MG/30 ML ORAL.SUSP. PO PRN (15:00)
[2020-11-08] MEDS ORDERED: HYDROcodone/APAP 5/325MG 1 TAB TABLET PO PRN (15:00)
[2020-11-08] MEDS ORDERED: METHOCARBAMOL 750 MG TABLET PO PRN (15:00)
[2020-11-08] MEDS ORDERED: PHENYLEPHRINE 10 MG/ML VIAL. ONE (15:17)
[2020-11-08] MEDS ORDERED: MORPHINE SULFATE 2 MG/ML VIAL. ONE (15:36)
[2020-11-08] MEDS: MORPHINE SULFATE 2 MG/ML VIAL. IVP PRN ×2 (15:39→15:48)
[2020-11-08] MEDS: HYDROcodone/APAP 5/325MG 1 TAB TABLET PO PRN ×2 (17:05→21:29)
--- NOTE | 2020-11-08 17:10 | NUR ---
Patient arrived around 1600 in a bed from PACU. at bedside. Thigh high yang hose in place with YUNIEL foot pumps. IV infusing properly. He is on room air. Vital signs stable. Denying pain medication upon admission. Admission completed and spoke with patient about if he has had any current/past suicidal thoughts. He stated he never has had intentions planned out but in the past he would get really depressed and wonder "why me?" due to all the pain he has been having. He states any prolonged depressive thoughts were roughly a year or so ago but are now better, especially after surgery since he now has hope that the pain might resolve. He refused to talk to the PAT team or anyone since it was "a while back and he feels much better and never had any intentions of harming himself, just thoughts". Patients at bedside to comfort him. Call light within reach. Will continue to monitor.
--- NOTE | 2020-11-08 17:38 | OP ---
DATE OF SURGERY: 11/08/2020 PREOPERATIVE DIAGNOSIS: Herniated cervical disc, C6-C7 with cervical radiculopathy. POSTOPERATIVE DIAGNOSIS: Herniated cervical disc, C6-C7 with cervical radiculopathy. OPERATION PERFORMED: Anterior cervical microdiscectomy C6-C7 anterior cervical interbody fusion with allograft bone, C6-C7 anterior cervical plate, C6-C7. The operation done with EMG monitoring, SSEP monitoring, motor evoked potentials, fluoroscopy, microscopic dissection. NIMS monitoring. SPECIMEN: Decompression and disc. SURGEON: Nic Gaspar M.D. SUPERVISOR OF OPERATIONS: NORMA Alejo. NORMA assisted with the surgery. She assisted with exposure of the discectomy as well as the placement of the plate and screws and closure. OPERATIVE INDICATIONS: The patient is a pleasant 65-year-old man who developed intractable neck and bilateral arm pain, which failed conservative measures and he has above-mentioned findings on imaging studies. I recommended an anterior cervical microdiskectomy and fusion. I spoke about the surgery, the risks, technique and expected postoperative course, and he wished to go ahead with the surgical endotracheal anesthesia. DESCRIPTION OF PROCEDURE: The patient was placed supine on the operating room table. The anterior cervical region was then prepped and draped in standard fashion. VINITA hose and AV impulse boots were applied for DVT prophylaxis. A microscope was draped, fluoroscopy was draped and brought into the field. Monitoring was established. Ancef 2 grams as well as vancomycin 1 gram were given prior to surgery. Using fluoroscopic guidance, incision was made in the midline around to the right side in a skin crease. I dissected down through skin and subcutaneous tissue and I partly divided the platysma dissected around the medial aspect of the sternocleidomastoid and carotid artery sheath down the anterior cervical vertebral bodies. I reflected the trachea and esophagus contralaterally and placed retractors wedged in the longus colli muscle. I placed distraction pins in C6 and C7. I confirmed my position fluoroscopically. I distracted the disc space after incising the annulus. During this time, I brought in the microscope and the remainder of surgery done with microscope using microscopic technique. I used pituitaries as well as endplate scrapers. I performed a generous discectomy. I then used high-speed air drill to drilled the anterior spurring and then opened the annulus posteriorly as well as ligament and widely and I assured myself that the foramina were widely patent. I then further scraped the cartilaginous endplate and measured and placed a 6 mm interbody fusion cage, which was packed with allograft bone. I did prepare the endplates excellently prior to placement of the cage. I then used a 12 mm anterior plate and four 14 mm screws, which were placed and locked. I irrigated during this time copiously and then removed the retractors and assured myself of perfect hemostasis in the muscle and I closed the wound in layers with absorbable suture and the skin was closed with 4-0 subcuticular stitch. The operation went very well. UMAIR DR: Irwin TID: [id number] HARLAN
[2020-11-08] MEDS: DOCUSATE SODIUM 100 MG CAPSULE. PO SCH (20:31)
[2020-11-08] MEDS: ceFAZolin SODIUM IV Push 1 GM VIAL. IVP SCH (20:31)
[2020-11-08] MEDS: IPRATRPIUM/ALBUTEROL 0.5/2.5MG 3 ML NEBU. NEB SCH (20:50)
[2020-11-08] MEDS ORDERED: ATORVASTATIN CALCIUM 20 MG TABLET PO SCH (21:00)
[2020-11-09 03:10] VITALS: BP 113/72
[2020-11-09] MEDS: HYDROcodone/APAP 5/325MG 1 TAB TABLET PO PRN ×2 (03:19→08:26)
[2020-11-09] MEDS: ceFAZolin SODIUM IV Push 1 GM VIAL. IVP SCH (04:30)
[2020-11-09 06:22] VITALS: BP 94/63
[2020-11-09] MEDS: IPRATRPIUM/ALBUTEROL 0.5/2.5MG 3 ML NEBU. NEB SCH (07:15)
[2020-11-09] MEDS: DOCUSATE SODIUM 100 MG CAPSULE. PO SCH (08:26)
[2020-11-09] MEDS ORDERED: NON FORMULARY ITEM (Tiotropium Bromide (Spiriva) 1 CAP) IH SCH (09:00)
[2020-11-09] MEDS ORDERED: MONTELUKAST SODIUM 10 MG TABLET. PO SCH (09:00)
[2020-11-09] MEDS ORDERED: LACTOBACILLUS RHAMNOSUS GG 1 CAPSULE. PO SCH (09:00)
[2020-11-09] MEDS ORDERED: HYDR-2761 PO (09:36)
[2020-11-09] MEDS ORDERED: DOCU-153 PO (09:36)
[2020-11-09] MEDS ORDERED: METH-562 PO (09:36)
--- NOTE | 2020-11-09 09:39 | DISCH ---
DISCHARGE INSTRUCTIONS Condition on Discharge Condition on Discharge: Stable Activity After Discharge Activity Instructions for Disc: Activity as tolerated, Avoid exertion Other activity instructions: no driving for a week Bathing Instructions: Shower-keep dressing dry, No Tub Bath until see Lifting Instructions after Dis: No heavy lifting, No pulling or pushing, Do not lift >10 pounds Driving Instructions after Dis: Do not drive Weight Bearing Status after Di: No restrictions Diet after Discharge Diet after Discharge: Regular Additional Diet Restrictions: resume home diet, soft foods Wound Incision Care Wound/Incision Care: Ice to area for comfort Other wound/incision instructi: may remove dressing in 48 hours if dry, soft collar for comfort Contacting the after DC Call your doctor for: Concerns you may have Follow-Up Follow up with: Dr. Douglass's nurse in 2 weeks [phone] ALISSA DOUGLASS MD Nov 09, 2020 09:39
--- NOTE | 2020-11-09 11:11 | NUR ---
Patient left around 1100 with his . Discharge education completed by this nurse, APARNA Arredondo, and therapy prior to dismissal. IV discontinued without complications. Soft collar in place. Surgical dressing CDI. No concerns noted at discharge.
--- NOTE | 2020-11-09 11:35 | DS ---
DATE OF DISCHARGE: 11/09/2020 DISCHARGE DIAGNOSES: Herniated cervical disk, C6-7 with cervical radiculopathy. OPERATION PERFORMED: ACDF C6-7. HISTORY OF PRESENT ILLNESS: The patient is a pleasant 65-year-old man who developed intractable neck and bilateral arm pain, which failed to improve with conservative measures and had the above-mentioned findings on imaging studies. I recommended anterior cervical microdiskectomy and fusion. I spoke with him about the surgery, the risks, the technique and expected postoperative course. He understood and wished to proceed. HOSPITAL COURSE: He was admitted to the floor postoperatively where he has done well. He has been up ambulating in the room and in the halls. Physical therapy was initiated and instruction was given to him regarding his activities. His pain is well controlled. His voice is clear. He is in good condition to discharge home. DISCHARGE MEDICATIONS: He will resume his medications per the MRAD. DISCHARGE INSTRUCTIONS: He was instructed regarding incision care, activity restrictions and expectations for the next several weeks. He will follow up in our office in 2 weeks. He understands to contact us with any questions or concerns. JASKARAN DR: Wilbert TID: [id number]
--- NOTE | 2020-11-13 14:23 | PATHOLOGY ---
[facility] Accession Number: [id number] . 01 Material submitted: . vertebral column - CERVICAL DISC. Modifiers: CERVICAL . 01 Clinical history: . CERVICALGIA CERVICAL SPONDYLOSIS WITH RADICULOPATH... ACDF C6-7 . 02 Diagnosis: Segments of fibrocartilaginous tissue, cervical disc: - Degenerative changes. . ([facility]:mm; 11/13/2020) [facility] 11/13/2020 1028 Local . 02 Comment: There is no evidence of an acute inflammatory process or malignancy. . ([facility]:mml; 11/13/2020) . 02 Electronically signed: . Waldemar Dean MD, Pathologist NPI- [id number] . 01 Gross description: . The specimen is received in formalin, labeled "Jair Salinas Jr., cervical disc". Received are multiple segments of pale hook, gritty fibrous tissue admixed with small fragments of bone measuring 4.2 x 3.5 x 0.7 cm in aggregate dimensions. The specimen is submitted representatively in cassette A1, following light decalcification. ([facility]; 11/10/2020) [facility]/QAC 11/10/2020 1516 Local . 02 Pathologist provided ICD-10: M50.30 . 02 CPT . 694200, [id number] Specimen Comment: A courtesy copy of this report has been sent to [phone], [phone] Specimen Comment: [id number] Specimen Comment: Report sent to / DR DOLL Performed at: 01 [facility] [address], [place], [place] [id number] MD Milton Cyr MD Phone: [phone] Performed at: 02 [facility] [address] [place], [place] [id number] MD Wadlemar Dean MD Phone: [phone]
== END 2020-11-09 11:10 | disposition home or self-care (01) ==
LOC: SURG 10:34 → 4 SOUTHEST 14:55
PROVIDERS: ADMIT Neurological Surgery; ATTEND Neurological Surgery
DX: M50.123 Cervical disc disorder at C6-C7 level with radiculopathy (principal); M50.223 Other cervical disc displacement at C6-C7 level; J45.909 Unspecified asthma, uncomplicated; M19.90 Unspecified osteoarthritis, unspecified site
CPT/HCPCS: 20931; 22551; 22853; 94640; 96374; 96376; 97110; 97162; A4213; A4364; A4556; A4930; A6254; A6258; C1713; C1821; G0378; G0379; J0690; J2250; J2270; J2370; J2704; J3010; J3370; J3490; 76000; A4222; A4223